=== PATIENT | female | born 1955 | race African-American/Black ===

== ENCOUNTER 2017-01-14 12:38 | Emergency (ER) | payer MEDICAID ==
[~2017-01-14] VITALS: Ht 154.9 cm; Wt 85.0 kg
[~2017-01-14 12:38] MED LIST: ALBUTEROL INH; CLIN-78 PO; DULO60CA44 PO; ESTR0.6264 PO; FLUTICASONE INH; FOLI-43 PO; HYDR-519 PO; IBUP-1510 PO; OMEP40CA34 PO
[2017-01-14] MEDS ORDERED: MORPHINE SULFATE 4 MG/ML CPJ (NOT FOR IM USE) IV STA (15:01)
[2017-01-14] MEDS ORDERED: ASPIRIN 81MG TABLET PO ONE (15:15)
[2017-01-14] MEDS ORDERED: LABETALOL HCL 20MG/4ML CARPUJECT IV ONE (15:15)
[2017-01-14] MEDS ORDERED: DIPHENHYDRAMINE 50MG/ML VIAL IV ONE (15:15)
[2017-01-14 15:31] LABS: HEMATOCRIT. 40.7 % (36.0-48.0); HEMOGLOBIN. 13.5 g/dL (12.0-16.0); MEAN CORPUSCULAR HEMOGLOBIN 27.8 pg (28.0-32.0); MEAN CORPUSCULAR HGB CONC 33.3 g/dL (31.0-37.0); MEAN CORPUSCULAR VOLUME 83.4 fL (81.0-99.0); MEAN PLATELET VOLUME 9.4 fl (7.4-10.4); PLATELET 278 x1000/uL (130-400); RED BLOOD CELL COUNT 4.88 mill/uL (4.2-5.4); WHITE BLOOD COUNT 5.6 x1000/uL (4.5-11.0)
[2017-01-14 15:35] LABS: INR 1.1; PARTIAL THROMBOPLASTIN TIME 26.8 sec (24.0-34.0)
[2017-01-14 15:36] LABS: ALBUMIN 3.3 g/dL (3.4-5.0); ANION GAP 11; CALCIUM 8.8 mg/dL (8.5-10.1); CARBON DIOXIDE 26 mEq/L (21-32); CHLORIDE 105 mEq/L (98-107); INDEX HEMOLYSI 1 (1-3); INDEX ICTERIC 1 (1-4); INDEX LIPEMIC 1 (1-3); LIPASE 123 IU/L (73-393); UREA NITROGEN BLOOD 11 mg/dL (7-21)
[2017-01-14 15:37] LABS: DIFFERENTIAL COMMENT 1
[2017-01-14 15:39] LABS: ALANINE AMINOTRANSFERASE 25 IU/L (13-61); ETHANOL BLOOD < 10 mg/dL
[2017-01-14 15:43] LABS: eGFR > 60 mL/min (>60)
[2017-01-14 15:44] LABS: TROPONIN I < 0.02 ng/mL (0.00-0.04)
[2017-01-14 16:50] LABS: ATYPICAL LYMPHOCYTES 2; NUCLEATED RED BLOOD CELLS 1 /100 WBC; PLATELET ESTIMATE NORMAL
[2017-01-14 16:51] LABS: ANISOCYTOSIS 1+; PLATELET SATELLITISM FEW
[2017-01-14] MEDS ORDERED: LABETALOL 5MG/ML SYR 20 MG/4 ML SYRINGE IV NR (17:30)
[2017-01-14] MEDS ORDERED: HYDROCODONE/ACETAMINOPHEN 10/325MG TABLET PO ONE (18:00)
[2017-01-14 18:24] VITALS: BP 158/97
== END 2017-01-14 19:28 | disposition home or self-care (01) ==
LOC: ER 13:10
DX: G89.29 Other chronic pain (principal); M54.30 Sciatica, unspecified side; M54.9 Dorsalgia, unspecified; M19.90 Unspecified osteoarthritis, unspecified site; R00.1 Bradycardia, unspecified; I10 Essential (primary) hypertension; M32.9 Systemic lupus erythematosus, unspecified; Z90.710 Acquired absence of both cervix and uterus; Z96.641 Presence of right artificial hip joint; Z87.891 Personal history of nicotine dependence; Z88.0 Allergy status to penicillin
CPT/HCPCS: 36415; 71010; 80053; 83605; 83690; 84484; 85025; 85610; 85730; 93005; 96374; 96375; 99285; G0482; J1200; J2270; J3490; J7030; Z7610

== ENCOUNTER 2017-01-25 16:27 | Emergency (ER) | payer MEDICAID ==
[~2017-01-25] VITALS: Ht 154.9 cm; Wt 87.0 kg
[2017-01-25] MEDS ORDERED: KETOROLAC 60MG/2ML VIAL IM ONE (17:15)
[2017-01-25] MEDS ORDERED: CYCLOBENZAPRINE 10MG TABLET PO ONE (17:15)
[2017-01-25 19:28] VITALS: BP 159/82
== END 2017-01-25 19:30 | disposition home or self-care (01) ==
LOC: ER 17:57
DX: G89.29 Other chronic pain (principal); M25.552 Pain in left hip; M25.551 Pain in right hip; M19.90 Unspecified osteoarthritis, unspecified site; M32.9 Systemic lupus erythematosus, unspecified; I10 Essential (primary) hypertension; Z88.0 Allergy status to penicillin; Z79.899 Other long term (current) drug therapy; Z90.710 Acquired absence of both cervix and uterus; Z82.49 Family history of ischemic heart disease and other diseases of the circulatory system
CPT/HCPCS: 73521; 96372; 99284; J1885

== ENCOUNTER 2017-03-25 09:16 | Inpatient (IN) | payer MEDICAID ==
[~2017-03-25] VITALS: Ht 154.9 cm; Wt 86.6 kg
[~2017-03-25 09:16] MED LIST changes: -CLIN-78 PO; +CLIN150C14 PO
[2017-03-25] MEDS ORDERED: KETOROLAC 30MG/ML VIAL IV STA (10:08)
[2017-03-25] MEDS ORDERED: OXYCODONE HCL/ACETAMINOPHEN 5/325MG TABLET PO ONE (10:15)
[2017-03-25] MEDS ORDERED: METOCLOPRAMIDE HCL 10MG/2ML VIAL IV ONE (10:15)
[2017-03-25] MEDS ORDERED: MAGNESIUM/ALUMINUM HYDROXIDE/SIMETHICONE 30ML UDC PO ONE (10:15)
[2017-03-25] MEDS ORDERED: VISCOUS LIDOCAINE 2% 15 ML UDC PO ONE (10:15)
[2017-03-25] MEDS ORDERED: DICYCLOMINE 10 MG/5 ML ORAL SYR PO ONE (10:15)
[2017-03-25 10:25] LABS: BASOPHILS % 0.4 % (0.0-2.0); EOSINOPHILS % 4.7 % (0.0-5.0); HEMATOCRIT. 40.1 % (36.0-48.0); HEMOGLOBIN. 13.4 g/dL (12.0-16.0); LYMPHOCYTES % 28.7 % (20.0-50.0); MEAN CORPUSCULAR HEMOGLOBIN 29.3 pg (28.0-32.0); MEAN CORPUSCULAR VOLUME 87.7 fL (81.0-99.0); MEAN PLATELET VOLUME 9.2 fl (7.4-10.4); MONOCYTES % 7.5 % (2.0-8.0); NEUTROPHILS % 58.7 % (40.0-76.0); PLATELET 268 x1000/uL (130-400); RED BLOOD CELL COUNT 4.57 mill/uL (4.2-5.4); RED CELL DISTRIBUTION WIDTH 14.4 % (11.6-14.6)
[2017-03-25 10:33] LABS: PROTHROMBIN TIME 10.9 sec
[2017-03-25 10:43] LABS: CARBON DIOXIDE 31 mEq/L (21-32); CHLORIDE 103 mEq/L (98-107); TROPONIN I < 0.02 ng/mL (0.00-0.04)
[2017-03-25 10:57] LABS: CLARITY URINE TURBID (CLEAR); COLOR URINE DARK YELLOW (YELLOW); GLUCOSE URINE NEGATIVE (NEGATIVE); KETONES URINE TRACE (NEGATIVE); LEUKOCYTE ESTERASE URINE NEGATIVE (NEGATIVE); NITRITE URINE NEGATIVE (NEGATIVE); OCCULT BLOOD URINE NEGATIVE (NEGATIVE); PROTEIN URINE NEGATIVE (NEGATIVE); SPECIFIC GRAVITY URINE 1.025 (1.005-1.030)
[2017-03-25] MEDS ORDERED: ASPIRIN 325MG EC TABLET PO ONE (11:15)
[2017-03-25] MEDS ORDERED: MORPHINE SULFATE 4 MG/ML CPJ (NOT FOR IM USE) IV ONE (11:30)
[2017-03-25 14:01] VITALS: BP 223/115
[2017-03-25] MEDS ORDERED: CLON0.3T PO (14:01)
[2017-03-25] MEDS ORDERED: SUCR1ORA PO (14:01)
[2017-03-25] MEDS ORDERED: HYDR-3933 PO (14:01)
[2017-03-25] MEDS ORDERED: GABA-531 PO (14:01)
[2017-03-25] MEDS ORDERED: PRED1TAB PO (14:01)
[2017-03-25] MEDS ORDERED: OMEP20CA10 PO (14:01)
[2017-03-25] MEDS ORDERED: NAPR-679 PO (14:01)
[2017-03-25] MEDS ORDERED: METH2.5T PO (14:01)
[2017-03-25] MEDS ORDERED: NEOM10DR11 EACH EAR (14:01)
[2017-03-25] MEDS ORDERED: FOLI-43 PO (14:01)
[2017-03-25] MEDS ORDERED: NITROSTAT (14:01)
[2017-03-25] MEDS ORDERED: FLUT16SP15 NS (14:01)
[2017-03-25] MEDS ORDERED: HYDR-4133 PO (14:01)
[2017-03-25] MEDS ORDERED: ARNUITY NS (14:01)
[2017-03-25 15:13] VITALS: BP 223/119
[2017-03-25 15:14] VITALS: BP 158/87
[2017-03-25] MEDS ORDERED: CLONIDINE 0.1MG TABLET PO PRN (15:30)
[2017-03-25 16:00] VITALS: BP 141/83
[2017-03-25] MEDS ORDERED: HYDRALAZINE HCL 50MG TABLET PO SCH (17:00)
[2017-03-25] MEDS: SUCRALFATE 1 G/10 ML UDC PO SCH ×2 (17:17→20:19)
[2017-03-25] MEDS: HYDROCODONE/ACETAMINOPHEN 10/325MG TABLET PO SCH ×3 (17:18→22:09)
[2017-03-25] MEDS: NAPROXEN 375MG TABLET PO SCH (17:18)
[2017-03-25] MEDS: FOLIC ACID 1MG TABLET PO SCH (17:18)
[2017-03-25] MEDS: CLONIDINE 0.3MG TABLET PO SCH (17:18)
[2017-03-25] MEDS: NEOMYCIN-POLYMYXIN-HYDROCORTISONE 1% OTIC SUSP 10ML EACH EAR SCH (17:19)
[2017-03-25] MEDS: FLUTICASONE PROPIONATE 50MCG/SPRAY BOTTLE BOTHNSTRLS SCH (17:19)
[2017-03-25 20:00] VITALS: BP 110/70
[2017-03-25 20:16] LABS: *AMPHETAMINES SCREEN URINE NEGATIVE (NEGATIVE); *BARBITURATES SCREEN URINE NEGATIVE (NEGATIVE); *BENZODIAZEPINES SCREEN URINE NEGATIVE (NEGATIVE); *COCAINE SCREEN URINE NEGATIVE (NEGATIVE); CANNABINOID URINE SCREEN NEGATIVE (NEGATIVE); METHADONE URINE SCREEN NEGATIVE (NEGATIVE); OPIATES URINE SCREEN NEGATIVE (NEGATIVE); PHENCYCLIDINE URINE SCREEN NEGATIVE (NEGATIVE)
[2017-03-25] MEDS: GABAPENTIN 300MG CAPSULE PO SCH (22:09)
[2017-03-25] MEDS: ENOXAPARIN 40MG/0.4ML SYR SUBCUT SCH (22:09)
[2017-03-25] MEDS: LOSARTAN POTASSIUM 50 MG TABLET PO SCH (22:10)
[2017-03-25] MEDS: AMLODIPINE 5MG TABLET PO SCH (22:10)
[2017-03-25] MEDS: HYDRALAZINE HCL 50MG TABLET PO SCH (22:11)
[2017-03-26] VITALS: BP 146/92
[2017-03-26] MEDS: POTASSIUM CHLORIDE 20MEQ TABLET SR PO SCH ×2 (00:31→04:00)
[2017-03-26 03:41] LABS: CARBON DIOXIDE 28 mEq/L (21-32); CHLORIDE 105 mEq/L (98-107); TROPONIN I 0.03 ng/mL (0.00-0.04)
[2017-03-26 04:00] VITALS: BP 121/71
[2017-03-26] MEDS ORDERED: POTASSIUM CHLORIDE 20MEQ TABLET SR PO NR ×2 (05:45)
[2017-03-26] MEDS: OMEPRAZOLE 20MG CAPSULE EXTENDED RELEASE PO SCH (05:47)
[2017-03-26] MEDS: HYDRALAZINE HCL 50MG TABLET PO SCH ×3 (05:57→22:00)
[2017-03-26] MEDS: NAPROXEN 375MG TABLET PO SCH ×3 (07:50→16:54)
[2017-03-26] MEDS ORDERED: ONDANSETRON HCL 4MG/2ML VIAL IV PRN (08:00)
[2017-03-26] MEDS ORDERED: BISACODYL 5MG TABLET PO PRN (08:00)
[2017-03-26 08:06] VITALS: BP 110/65
[2017-03-26] MEDS: SUCRALFATE 1 G/10 ML UDC PO SCH ×4 (08:15→20:17)
[2017-03-26] MEDS: NEOMYCIN-POLYMYXIN-HYDROCORTISONE 1% OTIC SUSP 10ML EACH EAR SCH (08:19)
[2017-03-26] MEDS: CLONIDINE 0.3MG TABLET PO SCH ×3 (08:20→22:00)
[2017-03-26] MEDS: LOSARTAN POTASSIUM 50 MG TABLET PO SCH ×2 (08:20→11:53)
[2017-03-26] MEDS: FLUTICASONE PROPIONATE 50MCG/SPRAY BOTTLE BOTHNSTRLS SCH ×3 (08:20→16:56)
[2017-03-26] MEDS: PREDNISONE 10MG TABLET PO SCH (08:21)
[2017-03-26] MEDS: AMLODIPINE 5MG TABLET PO SCH ×2 (08:21→20:36)
[2017-03-26] MEDS: HYDROCODONE/ACETAMINOPHEN 10/325MG TABLET PO SCH ×5 (08:21→22:52)
[2017-03-26] MEDS: FOLIC ACID 1MG TABLET PO SCH (08:21)
[2017-03-26] MEDS ORDERED: REGADENOSON 0.4 MG/5 ML IV NR (10:00)
[2017-03-26] MEDS ORDERED: REGADENOSON 0.4 MG/5 ML IV ONE (12:46)
[2017-03-26 16:13] VITALS: BP 128/75
[2017-03-26] MEDS ORDERED: TEMAZEPAM 15MG CAPSULE PO PRN (18:00)
[2017-03-26 20:00] VITALS: BP 109/64
[2017-03-26] MEDS: GABAPENTIN 300MG CAPSULE PO SCH (20:17)
[2017-03-26] MEDS: ENOXAPARIN 40MG/0.4ML SYR SUBCUT SCH (20:18)
[2017-03-27] VITALS: BP 111/69
[2017-03-27 04:00] VITALS: BP 125/79
[2017-03-27] MEDS: HYDRALAZINE HCL 50MG TABLET PO SCH ×2 (05:26→13:35)
[2017-03-27] MEDS: CLONIDINE 0.3MG TABLET PO SCH ×2 (05:26→13:35)
[2017-03-27] MEDS: OMEPRAZOLE 20MG CAPSULE EXTENDED RELEASE PO SCH (05:59)
[2017-03-27 08:00] VITALS: BP 112/63
[2017-03-27] MEDS: FOLIC ACID 1MG TABLET PO SCH (08:29)
[2017-03-27] MEDS: AMLODIPINE 5MG TABLET PO SCH (08:29)
[2017-03-27] MEDS: NAPROXEN 375MG TABLET PO SCH ×2 (08:29→17:05)
[2017-03-27] MEDS: SUCRALFATE 1 G/10 ML UDC PO SCH ×2 (08:29→13:35)
[2017-03-27] MEDS: NEOMYCIN-POLYMYXIN-HYDROCORTISONE 1% OTIC SUSP 10ML EACH EAR SCH (08:29)
[2017-03-27] MEDS: LOSARTAN POTASSIUM 50 MG TABLET PO SCH (08:30)
[2017-03-27] MEDS: PREDNISONE 10MG TABLET PO SCH (08:30)
[2017-03-27] MEDS: FLUTICASONE PROPIONATE 50MCG/SPRAY BOTTLE BOTHNSTRLS SCH ×2 (08:34→16:28)
[2017-03-27] MEDS: HYDROCODONE/ACETAMINOPHEN 10/325MG TABLET PO SCH ×3 (08:34→16:27)
[2017-03-27 12:00] VITALS: BP 112/49
[2017-03-27 16:00] VITALS: BP 122/66
[2017-03-27] MEDS ORDERED: SUCRALFATE 1 G/10 ML UDC PO SCH (17:20)
[2017-03-27 18:41] VITALS: BP 122/66
== END 2017-03-27 19:20 | disposition home or self-care (01) | DRG 203 ==
LOC: ER 09:43 → 6WST 11:24 → EDBEDREQ 11:31 → ENRESERV 12:30
PROVIDERS: ADMIT Internal Medicine Pulmonary Disease; ATTEND Internal Medicine Pulmonary Disease
DX: M94.0 Chondrocostal junction syndrome [Tietze] (principal); M32.9 Systemic lupus erythematosus, unspecified; I10 Essential (primary) hypertension; E66.9 Obesity, unspecified; J45.909 Unspecified asthma, uncomplicated; R10.9 Unspecified abdominal pain; G89.29 Other chronic pain; G43.909 Migraine, unspecified, not intractable, without status migrainosus; M06.9 Rheumatoid arthritis, unspecified; Z68.36 Body mass index [BMI] 36.0-36.9, adult; Z96.641 Presence of right artificial hip joint; Z88.6 Allergy status to analgesic agent; Z88.0 Allergy status to penicillin; Z79.899 Other long term (current) drug therapy; Z82.49 Family history of ischemic heart disease and other diseases of the circulatory system
CPT/HCPCS: 36415; 70450; 71010; 78452; 80048; 80053; 80305; 81001; 83690; 83880; 84484; 85025; 85610; 93005; 93017; 93306; 96374; 96375; 97162; 99285; A9500; J1650; J1885; J2765; J2785; J7512

== ENCOUNTER 2017-05-19 10:07 | Emergency (ER) | payer MEDICAID ==
[~2017-05-19] VITALS: Ht 154.9 cm; Wt 84.0 kg
[~2017-05-19 10:07] MED LIST changes: -ALBUTEROL INH; +ARNUITY NS; -CLIN150C14 PO; -DULO60CA44 PO; -ESTR0.6264 PO; +FLUT16SP15 NS; -FLUTICASONE INH; +GABA-531 PO; +HYDR-3933 PO; -HYDR-519 PO; -IBUP-1510 PO; +IOHEXOL-350 100 ML BOTTLE ONE; +METH2.5T PO; +NAPR-679 PO; +NEOM10DR11 EACH EAR; +NITROSTAT; +OMEP20CA10 PO; -OMEP40CA34 PO; +PRED1TAB PO; +SODIUM CHLORIDE 0.9% 10ML VIAL ONE; +SUCR1ORA PO
[2017-05-19] MEDS ORDERED: MORPHINE SULFATE 4 MG/ML CPJ (NOT FOR IM USE) IV STA (11:08)
[2017-05-19] MEDS ORDERED: ONDANSETRON HCL 4MG/2ML VIAL IV ONE (11:30)
[2017-05-19 11:50] LABS: BASOPHILS % 0.6 % (0.0-2.0); EOSINOPHILS % 0.7 % (0.0-5.0); HEMATOCRIT. 40.4 % (36.0-48.0); HEMOGLOBIN. 13.5 g/dL (12.0-16.0); LYMPHOCYTES % 16.5 % (20.0-50.0); MEAN CORPUSCULAR HEMOGLOBIN 30.2 pg (28.0-32.0); MEAN PLATELET VOLUME 8.9 fl (7.4-10.4); MONOCYTES % 2.4 % (2.0-8.0); NEUTROPHILS % 79.8 % (40.0-76.0); PLATELET 260 x1000/uL (130-400); RED BLOOD CELL COUNT 4.49 mill/uL (4.2-5.4)
[2017-05-19 11:57] LABS: PROTHROMBIN TIME 10.7 sec (9.4-11.6)
[2017-05-19 12:05] LABS: CARBON DIOXIDE 26 mEq/L (21-32); CHLORIDE 107 mEq/L (98-107); TROPONIN I < 0.02 ng/mL (0.00-0.04)
[2017-05-19] MEDS ORDERED: ASPIRIN 325MG EC TABLET PO ONE (13:00)
[2017-05-19] MEDS ORDERED: OXYCODONE HCL/ACETAMINOPHEN 5/325MG TABLET PO ONE (15:15)
[2017-05-19] MEDS ORDERED: KETOROLAC 30MG/ML VIAL IV ONE (15:15)
[2017-05-19 15:58] VITALS: BP 189/98
== END 2017-05-19 17:00 | disposition home or self-care (01) ==
LOC: ER 11:16
DX: M25.50 Pain in unspecified joint (principal); R06.00 Dyspnea, unspecified; I10 Essential (primary) hypertension; R07.9 Chest pain, unspecified; M19.90 Unspecified osteoarthritis, unspecified site; R53.1 Weakness; Z88.0 Allergy status to penicillin; Z88.8 Allergy status to other drugs, medicaments and biological substances
CPT/HCPCS: 36415; 71010; 71275; 80053; 83880; 84484; 85025; 85610; 93005; 93970; 96374; 96375; 99285; A4216; J1885; J2270; J2405; J7040; Q9967; Z7610

== ENCOUNTER 2017-06-18 05:30 | Inpatient (IN) | payer MEDICAID ==
[~2017-06-18] VITALS: Ht 154.9 cm; Wt 93.9 kg
[~2017-06-18 05:30] MED LIST changes: -IOHEXOL-350 100 ML BOTTLE ONE; -SODIUM CHLORIDE 0.9% 10ML VIAL ONE
[2017-06-18] MEDS ORDERED: SODIUM CHLORIDE 0.9% 1,000 ML IV ONE (06:19)
[2017-06-18] MEDS ORDERED: ONDANSETRON HCL 4MG/2ML VIAL IV STA (06:19)
[2017-06-18] MEDS ORDERED: KETOROLAC 15MG/ML VIAL IV ONE (06:30)
[2017-06-18 06:41] LABS: BASOPHILS % 2.1 % (0.0-2.0); HEMATOCRIT. 39.6 % (36.0-48.0); HEMOGLOBIN. 13.3 g/dL (12.0-16.0); LYMPHOCYTES % 38.1 % (20.0-50.0); MEAN CORPUSCULAR HEMOGLOBIN 30.2 pg (28.0-32.0); MEAN CORPUSCULAR VOLUME 89.8 fL (81.0-99.0); MEAN PLATELET VOLUME 9.4 fl (7.4-10.4); MONOCYTES % 8.8 % (2.0-8.0); PLATELET 241 x1000/uL (130-400); RED CELL DISTRIBUTION WIDTH 14.5 % (11.6-14.6)
[2017-06-18 06:48] LABS: INR 1.1; PROTHROMBIN TIME 11.2 sec (9.4-11.6)
[2017-06-18 06:59] LABS: CARBON DIOXIDE 27 mEq/L (21-32); CHLORIDE 106 mEq/L (98-107); TROPONIN I < 0.02 ng/mL (0.00-0.04)
[2017-06-18 08:34] LABS: GLUCOSE URINE NEGATIVE (NEGATIVE); KETONES URINE NEGATIVE (NEGATIVE); LEUKOCYTE ESTERASE URINE NEGATIVE (NEGATIVE); NITRITE URINE NEGATIVE (NEGATIVE); OCCULT BLOOD URINE NEGATIVE (NEGATIVE); PROTEIN URINE NEGATIVE (NEGATIVE); SPECIFIC GRAVITY URINE 1.016 (1.005-1.030); UROBILINOGEN URINE 0.2 E.U./dL (0.2-1.0)
[2017-06-18 08:35] LABS: CLARITY URINE CLEAR (CLEAR); COLOR URINE YELLOW (YELLOW)
[2017-06-18] MEDS ORDERED: IOHEXOL-300 100 ML BOTTLE ONE (08:52)
[2017-06-18] MEDS ORDERED: SODIUM CHLORIDE 0.9% 1,000 ML IV SCH (09:06)
[2017-06-18] MEDS ORDERED: CLONIDINE 0.1MG TABLET PO NR (12:26)
[2017-06-18] MEDS ORDERED: KETOROLAC 30MG/ML VIAL IV NR (12:26)
[2017-06-18] MEDS ORDERED: MORPHINE SULFATE 4 MG/ML CPJ (NOT FOR IM USE) IV NR (13:15)
[2017-06-18 13:30] VITALS: BP 182/69
[2017-06-18] MEDS ORDERED: CLONIDINE 0.3MG TABLET PO NR (14:00)
[2017-06-18] MEDS ORDERED: CLON0.3T PO (14:22)
[2017-06-18] MEDS ORDERED: HYDR-4133 PO (14:22)
[2017-06-18] MEDS ORDERED: DOCU-150 PO (14:22)
[2017-06-18] MEDS: AMLODIPINE 10MG TABLET PO SCH (15:28)
[2017-06-18 15:30] VITALS: BP 178/83
[2017-06-18 16:00] VITALS: BP 156/78
[2017-06-18] MEDS ORDERED: DICYCLOMINE HCL 20MG TABLET PO PRN (16:00)
[2017-06-18] MEDS: BISACODYL 5MG TABLET PO SCH (17:58)
[2017-06-18 18:00] VITALS: BP 133/64
[2017-06-18 20:00] VITALS: BP 134/74
[2017-06-18] MEDS ORDERED: HYDRALAZINE HCL 50MG TABLET PO SCH (21:00)
[2017-06-18] MEDS: HYDRALAZINE HCL 50MG TABLET PO SCH (22:00)
[2017-06-18] MEDS: CLONIDINE 0.3MG TABLET PO SCH (22:00)
[2017-06-18 23:09] VITALS: BP 129/77
[2017-06-19] MEDS ORDERED: MAGNESIUM HYDROXIDE 400MG/5ML 30ML UDC PO NR
[2017-06-19 03:57] VITALS: BP 139/80
[2017-06-19 06:00] VITALS: BP 141/77
[2017-06-19] MEDS: HYDRALAZINE HCL 50MG TABLET PO SCH ×3 (06:15→22:00)
[2017-06-19] MEDS: CLONIDINE 0.3MG TABLET PO SCH ×2 (06:16→13:42)
[2017-06-19 07:06] LABS: BASOPHILS % 0.9 % (0.0-2.0); EOSINOPHILS % 4.4 % (0.0-5.0); HEMATOCRIT. 46.4 % (36.0-48.0); HEMOGLOBIN. 15.7 g/dL (12.0-16.0); LYMPHOCYTES % 34.4 % (20.0-50.0); MEAN CORPUSCULAR HEMOGLOBIN 30.7 pg (28.0-32.0); MEAN CORPUSCULAR VOLUME 90.8 fL (81.0-99.0); MEAN PLATELET VOLUME 10.1 fl (7.4-10.4); MONOCYTES % 10.6 % (2.0-8.0); NEUTROPHILS % 49.7 % (40.0-76.0); PLATELET 237 x1000/uL (130-400); RED BLOOD CELL COUNT 5.11 mill/uL (4.2-5.4); RED CELL DISTRIBUTION WIDTH 14.6 % (11.6-14.6)
[2017-06-19 07:16] LABS: CARBON DIOXIDE 25 mEq/L (21-32); CHLORIDE 106 mEq/L (98-107)
[2017-06-19 08:00] VITALS: BP 117/66
[2017-06-19] MEDS: BISACODYL 5MG TABLET PO SCH (08:58)
[2017-06-19] MEDS: AMLODIPINE 10MG TABLET PO SCH (08:58)
[2017-06-19] MEDS: LACTULOSE 20G/30ML UDC PO SCH ×2 (11:21→16:08)
[2017-06-19 12:00] VITALS: BP 136/72
[2017-06-19 16:00] VITALS: BP 127/65
[2017-06-19] MEDS: HYDROCODONE/ACETAMINOPHEN 10/325MG TABLET PO PRN (16:09)
[2017-06-19] MEDS ORDERED: CLONIDINE 0.3MG TABLET PO SCH (17:00)
[2017-06-19 20:00] VITALS: BP 100/57
[2017-06-19] MEDS: CLONIDINE 0.2MG TABLET PO SCH (21:00)
[2017-06-20] VITALS (28 sets, daily range): BP systolic 96–189; BP diastolic 47–106
[2017-06-20] MEDS: MORPHINE SULFATE 4 MG/ML CPJ (NOT FOR IM USE) IV PRN ×3 (03:18→21:05)
[2017-06-20] MEDS: HYDRALAZINE HCL 50MG TABLET PO SCH ×3 (06:00→21:11)
[2017-06-20 07:49] LABS: BASOPHILS % 1.1 % (0.0-2.0); EOSINOPHILS % 3.3 % (0.0-5.0); HEMOGLOBIN. 14.7 g/dL (12.0-16.0); LYMPHOCYTES % 31.9 % (20.0-50.0); MEAN CORPUSCULAR HEMOGLOBIN 30.3 pg (28.0-32.0); MEAN PLATELET VOLUME 9.8 fl (7.4-10.4); MONOCYTES % 8.5 % (2.0-8.0); NEUTROPHILS % 55.2 % (40.0-76.0); PLATELET 262 x1000/uL (130-400); RED BLOOD CELL COUNT 4.83 mill/uL (4.2-5.4); RED CELL DISTRIBUTION WIDTH 14.5 % (11.6-14.6)
[2017-06-20 08:10] LABS: CARBON DIOXIDE 29 mEq/L (21-32); CHLORIDE 104 mEq/L (98-107)
[2017-06-20] MEDS: CLONIDINE 0.2MG TABLET PO SCH ×2 (08:35→21:11)
[2017-06-20] MEDS: BISACODYL 5MG TABLET PO SCH (08:36)
[2017-06-20] MEDS: LACTULOSE 20G/30ML UDC PO SCH ×2 (08:36→17:00)
[2017-06-20] MEDS: AMLODIPINE 10MG TABLET PO SCH (08:36)
[2017-06-20] MEDS ORDERED: ROCURONIUM BROMIDE 10MG/ML VIAL 5ML IV ONE (10:00)
[2017-06-20] MEDS ORDERED: SODIUM CHLORIDE 0.9% 10ML VIAL ONE (10:00)
[2017-06-20] MEDS ORDERED: PROPOFOL 200MG/20ML VIAL IV ONE (10:00)
[2017-06-20] MEDS ORDERED: CEFAZOLIN SODIUM 1000MG/VIAL ONE (10:00)
[2017-06-20] MEDS ORDERED: LIDOCAINE HCL 1%/EPI 1:200,000 30 ML VIAL ONE (10:03)
[2017-06-20] MEDS ORDERED: FENTANYL CITRATE/PF 50MCG/ML 2ML VIAL ONE (10:03)
[2017-06-20] MEDS ORDERED: BACITRACIN 50,000 UNITS/VIAL ONE (10:03)
[2017-06-20] MEDS ORDERED: MIDAZOLAM HCL 2 MG/2 ML VIAL ONE (10:03)
[2017-06-20] MEDS ORDERED: GELATIN SPONGE,ABSORBABLE SZ 100 ONE (10:03)
[2017-06-20] MEDS ORDERED: THROMBIN (BOVINE) 5000 UNITS/VIAL TOP ONE (10:12)
[2017-06-20] MEDS ORDERED: CLINDAMYCIN 900 MG in DEXTROSE 5% WATER 50 ML IV ONE (10:15)
[2017-06-20] MEDS ORDERED: LABETALOL 5MG/ML SYR 20 MG/4 ML SYRINGE IV ONE (10:52)
[2017-06-20] MEDS ORDERED: MORPHINE SULFATE 10 MG/ML CPJ ONE (11:58)
[2017-06-20] MEDS ORDERED: NICARDIPINE 50 MG in SODIUM CHLORIDE 0.9% 230 ML IV PRN (14:15)
[2017-06-20] MEDS ORDERED: DIPHENHYDRAMINE 50MG/ML VIAL IV PRN (15:07)
[2017-06-20] MEDS ORDERED: MORPHINE PCA 50MG/50ML IV PRN (15:30)
[2017-06-20] MEDS ORDERED: DIPHENHYDRAMINE INJ IV PRN (15:30)
[2017-06-20] MEDS: ENALAPRIL 2.5MG/2ML VIAL 2ML IV PRN (15:30)
[2017-06-20] MEDS ORDERED: NALOXONE INJ IV PRN (15:30)
[2017-06-20] MEDS ORDERED: NICARDIPINE 100 MG in SODIUM CHLORIDE 0.9% 60 ML IV PRN (15:30)
[2017-06-20] MEDS: DEXT 5%/LACTATED RINGERS 1,000 ML IV SCH ×2 (15:34→22:50)
[2017-06-20] MEDS: CLINDAMYCIN 600 MG in DEXTROSE 5% WATER 50 ML IV SCH (16:59)
[2017-06-20] MEDS: PANTOPRAZOLE SODIUM 40 MG/VIAL IV SCH (21:11)
[2017-06-21] VITALS (62 sets, daily range): BP systolic 96–172; BP diastolic 34–110
[2017-06-21] MEDS: CLINDAMYCIN 600 MG in DEXTROSE 5% WATER 50 ML IV SCH ×3 (00:18→15:08)
[2017-06-21] MEDS: HYDROCODONE/ACETAMINOPHEN 10/325MG TABLET PO PRN (00:19)
[2017-06-21] MEDS ORDERED: MORPHINE SULFATE 2 MG/ML CPJ (NOT FOR IM USE) IV PRN ×2 (00:30)
[2017-06-21] MEDS: ONDANSETRON INJ IV PRN ×4 (00:41→15:57)
[2017-06-21] MEDS ORDERED: MORPHINE SULFATE 4 MG/ML CPJ (NOT FOR IM USE) IV PRN (00:48)
[2017-06-21] MEDS: MORPHINE SULFATE 4 MG/ML CPJ (NOT FOR IM USE) IV PRN ×7 (02:21→20:02)
[2017-06-21] MEDS: DEXT 5%/LACTATED RINGERS 1,000 ML IV SCH ×3 (06:30→20:45)
[2017-06-21] MEDS: HYDRALAZINE HCL 50MG TABLET PO SCH ×3 (06:35→22:13)
[2017-06-21] MEDS: PANTOPRAZOLE SODIUM 40 MG/VIAL IV SCH (08:27)
[2017-06-21] MEDS: CLONIDINE 0.2MG TABLET PO SCH ×2 (08:27→21:00)
[2017-06-21] MEDS: BISACODYL 5MG TABLET PO SCH (08:27)
[2017-06-21] MEDS: LACTULOSE 20G/30ML UDC PO SCH ×3 (08:27→17:00)
[2017-06-21 10:17] LABS: HEMATOCRIT. 36.5 % (36.0-48.0); MEAN CORPUSCULAR VOLUME 90.6 fL (81.0-99.0); MEAN PLATELET VOLUME 9.1 fl (7.4-10.4); PLATELET 227 x1000/uL (130-400); RED BLOOD CELL COUNT 4.03 mill/uL (4.2-5.4); RED CELL DISTRIBUTION WIDTH 14.3 % (11.6-14.6)
[2017-06-21 10:24] LABS: HEMOGLOBIN. 12.1 g/dL (12.0-16.0)
[2017-06-21 10:34] LABS: CARBON DIOXIDE 26 mEq/L (21-32); CHLORIDE 102 mEq/L (98-107)
[2017-06-21 11:29] LABS: PLATELET ESTIMATE NORMAL
[2017-06-21] MEDS: ENALAPRIL 2.5MG/2ML VIAL 2ML IV PRN (13:04)
[2017-06-21] MEDS ORDERED: ENALAPRIL 1.25MG/ML VIAL 1ML IV PRN (21:45)
[2017-06-22] VITALS (48 sets, daily range): BP systolic 95–187; BP diastolic 37–108
[2017-06-22] MEDS: MORPHINE SULFATE 4 MG/ML CPJ (NOT FOR IM USE) IV PRN ×5 (02:00→23:09)
[2017-06-22] MEDS: ONDANSETRON INJ IV PRN ×2 (02:04→10:43)
[2017-06-22] MEDS: DEXT 5%/LACTATED RINGERS 1,000 ML IV SCH ×2 (03:33→06:15)
[2017-06-22 05:54] LABS: BASOPHILS % 0.1 % (0.0-2.0); EOSINOPHILS % 0.1 % (0.0-5.0); HEMATOCRIT. 33.7 % (36.0-48.0); HEMOGLOBIN. 11.1 g/dL (12.0-16.0); LYMPHOCYTES % 9.7 % (20.0-50.0); MEAN CORPUSCULAR HEMOGLOBIN 30.4 pg (28.0-32.0); MEAN CORPUSCULAR VOLUME 91.8 fL (81.0-99.0); MEAN PLATELET VOLUME 9.7 fl (7.4-10.4); MONOCYTES % 10.9 % (2.0-8.0); NEUTROPHILS % 79.2 % (40.0-76.0); PLATELET 198 x1000/uL (130-400); RED BLOOD CELL COUNT 3.67 mill/uL (4.2-5.4); RED CELL DISTRIBUTION WIDTH 14.7 % (11.6-14.6)
[2017-06-22 06:19] LABS: CHLORIDE 104 mEq/L (98-107)
[2017-06-22 06:26] LABS: CARBON DIOXIDE 28 mEq/L (21-32)
[2017-06-22] MEDS: HYDRALAZINE HCL 50MG TABLET PO SCH ×3 (06:37→23:02)
[2017-06-22] MEDS ORDERED: ALBUTEROL (0.083%) 2.5MG/3ML NEB HHN NR (08:45)
[2017-06-22] MEDS: LACTULOSE 20G/30ML UDC PO SCH ×2 (09:00→09:09)
[2017-06-22] MEDS: BISACODYL 5MG TABLET PO SCH (09:08)
[2017-06-22] MEDS: PANTOPRAZOLE SODIUM 40 MG/VIAL IV SCH (09:09)
[2017-06-22] MEDS: CLONIDINE 0.2MG TABLET PO SCH ×2 (09:09→20:27)
[2017-06-22] MEDS: ALBUTEROL (0.083%) 2.5MG/3ML NEB HHN PRN (09:59)
[2017-06-22] MEDS: CYCLOBENZAPRINE 10MG TABLET PO SCH ×2 (13:43→21:40)
[2017-06-22] MEDS ORDERED: DIPHENHYDRAMINE INJ IV PRN (20:45)
[2017-06-23] VITALS: BP 159/81
[2017-06-23] MEDS: MORPHINE SULFATE 4 MG/ML CPJ (NOT FOR IM USE) IV PRN ×2 (03:28→08:29)
[2017-06-23 04:00] VITALS: BP 147/79
[2017-06-23 06:23] LABS: BASOPHILS % 0.5 % (0.0-2.0); EOSINOPHILS % 3.2 % (0.0-5.0); HEMATOCRIT. 34.4 % (36.0-48.0); HEMOGLOBIN. 11.7 g/dL (12.0-16.0); LYMPHOCYTES % 17.2 % (20.0-50.0); MEAN CORPUSCULAR HEMOGLOBIN 30.8 pg (28.0-32.0); MEAN PLATELET VOLUME 9.5 fl (7.4-10.4); MONOCYTES % 14.1 % (2.0-8.0); PLATELET 179 x1000/uL (130-400); RED BLOOD CELL COUNT 3.79 mill/uL (4.2-5.4); RED CELL DISTRIBUTION WIDTH 14.1 % (11.6-14.6)
[2017-06-23] MEDS: CYCLOBENZAPRINE 10MG TABLET PO SCH ×3 (06:58→23:09)
[2017-06-23] MEDS: HYDRALAZINE HCL 50MG TABLET PO SCH ×3 (06:58→23:09)
[2017-06-23 08:00] VITALS: BP 165/82
[2017-06-23] MEDS: CLONIDINE 0.2MG TABLET PO SCH ×2 (08:29→21:16)
[2017-06-23] MEDS: PANTOPRAZOLE SODIUM 40 MG/VIAL IV SCH (08:29)
[2017-06-23] MEDS: ONDANSETRON INJ IV PRN ×3 (08:45→16:03)
[2017-06-23] MEDS ORDERED: MORPHINE SULFATE 2 MG/ML CPJ (NOT FOR IM USE) IV PRN ×2 (11:45)
[2017-06-23 12:00] VITALS: BP 134/61
[2017-06-23 16:00] VITALS: BP 147/90
[2017-06-23] MEDS: MORPHINE SULFATE 2 MG/ML CPJ (NOT FOR IM USE) IV PRN ×3 (16:04→23:15)
[2017-06-23] MEDS ORDERED: HYDROCODONE/ACETAMINOPHEN 10/325MG TABLET PO PRN (17:15)
[2017-06-23] MEDS: ALBUTEROL (0.083%) 2.5MG/3ML NEB HHN PRN (17:57)
[2017-06-23 20:00] VITALS: BP 133/70
[2017-06-24] VITALS: BP 143/80
[2017-06-24 04:00] VITALS: BP 139/90
[2017-06-24] MEDS: MORPHINE SULFATE 2 MG/ML CPJ (NOT FOR IM USE) IV PRN ×3 (05:03→18:42)
[2017-06-24] MEDS: CYCLOBENZAPRINE 10MG TABLET PO SCH ×3 (06:52→21:26)
[2017-06-24] MEDS: HYDRALAZINE HCL 50MG TABLET PO SCH ×3 (06:52→21:20)
[2017-06-24 07:45] LABS: BASOPHILS % 0.3 % (0.0-2.0); EOSINOPHILS % 3.5 % (0.0-5.0); HEMOGLOBIN. 12.3 g/dL (12.0-16.0); MEAN CORPUSCULAR VOLUME 90.8 fL (81.0-99.0); MEAN PLATELET VOLUME 9.5 fl (7.4-10.4); MONOCYTES % 11.8 % (2.0-8.0); NEUTROPHILS % 74.4 % (40.0-76.0); PLATELET 190 x1000/uL (130-400); RED BLOOD CELL COUNT 3.97 mill/uL (4.2-5.4); RED CELL DISTRIBUTION WIDTH 13.8 % (11.6-14.6)
[2017-06-24 08:00] VITALS: BP 131/64
[2017-06-24] MEDS: CLONIDINE 0.2MG TABLET PO SCH ×2 (08:58→21:19)
[2017-06-24] MEDS: FAMOTIDINE 20MG TABLET PO SCH ×2 (09:05→21:19)
[2017-06-24 12:00] VITALS: BP 147/84
[2017-06-24 16:00] VITALS: BP 133/97
[2017-06-24] MEDS: HYDROCODONE/ACETAMINOPHEN 10/325MG TABLET PO PRN (16:06)
[2017-06-24 20:00] VITALS: BP_SYST 161; BP_SYST 166; BP_DIAS 106; BP_DIAS 89
[2017-06-25] VITALS (7 sets, daily range): BP systolic 92–148; BP diastolic 48–97
[2017-06-25] MEDS: MORPHINE SULFATE 2 MG/ML CPJ (NOT FOR IM USE) IV PRN ×2 (00:10→08:06)
[2017-06-25] MEDS: HYDROCODONE/ACETAMINOPHEN 10/325MG TABLET PO PRN ×4 (04:17→18:28)
[2017-06-25] MEDS: HYDRALAZINE HCL 50MG TABLET PO SCH ×3 (06:03→22:00)
[2017-06-25] MEDS: CYCLOBENZAPRINE 10MG TABLET PO SCH ×3 (06:03→22:01)
[2017-06-25 06:58] LABS: BASOPHILS % 0.5 % (0.0-2.0); EOSINOPHILS % 6.1 % (0.0-5.0); HEMATOCRIT. 33.7 % (36.0-48.0); HEMOGLOBIN. 11.3 g/dL (12.0-16.0); LYMPHOCYTES % 10.4 % (20.0-50.0); MEAN CORPUSCULAR HEMOGLOBIN 30.4 pg (28.0-32.0); MEAN CORPUSCULAR VOLUME 90.4 fL (81.0-99.0); MEAN PLATELET VOLUME 9.8 fl (7.4-10.4); MONOCYTES % 14.3 % (2.0-8.0); NEUTROPHILS % 68.7 % (40.0-76.0); PLATELET 214 x1000/uL (130-400); RED BLOOD CELL COUNT 3.73 mill/uL (4.2-5.4); RED CELL DISTRIBUTION WIDTH 13.5 % (11.6-14.6)
[2017-06-25 06:59] LABS: CARBON DIOXIDE 32 mEq/L (21-32); CHLORIDE 98 mEq/L (98-107)
[2017-06-25] MEDS: CLONIDINE 0.2MG TABLET PO SCH ×2 (08:05→22:02)
[2017-06-25] MEDS: FAMOTIDINE 20MG TABLET PO SCH ×2 (08:05→22:02)
[2017-06-25] MEDS ORDERED: MAGNESIUM CITRATE 300ML SOLUTION PO SCH (12:00)
[2017-06-26] VITALS (7 sets, daily range): BP systolic 101–124; BP diastolic 50–94
[2017-06-26] MEDS: HYDROCODONE/ACETAMINOPHEN 10/325MG TABLET PO PRN ×4 (00:34→16:01)
[2017-06-26] MEDS: HYDRALAZINE HCL 50MG TABLET PO SCH ×2 (06:00→13:25)
[2017-06-26] MEDS: CYCLOBENZAPRINE 10MG TABLET PO SCH ×2 (06:21→13:24)
[2017-06-26] MEDS ORDERED: DOCUSATE SODIUM SUGAR FREE 100MG/10ML UDC NG SCH (09:15)
[2017-06-26] MEDS ORDERED: BISACODYL 10MG SUPP PR PRN (09:15)
[2017-06-26] MEDS: FAMOTIDINE 20MG TABLET PO SCH (09:27)
[2017-06-26] MEDS ORDERED: LACTULOSE 20G/30ML UDC PO SCH (14:00)
[2017-06-26] MEDS ORDERED: CLONIDINE 0.1MG TABLET PO SCH (21:00)
== END 2017-06-26 16:57 | DRG 304 ==
LOC: ER 05:46 → 5WST 09:08 → EDBEDREQ 09:10 → ENRESERV 11:58 → MICUNO 06-20 14:45 → 5WST 06-22 23:55
PROVIDERS: ADMIT Internal Medicine Critical Care Medicine; ATTEND Internal Medicine Critical Care Medicine
PROC: 0SG1071 Fusion of 2 or more Lumbar Vertebral Joints with Autologous Tissue Substitute, Posterior Approach, Posterior Column, Open Approach (ICD-10-PCS; 2017-06-20)
PROC: 02HV33Z Insertion of Infusion Device into Superior Vena Cava, Percutaneous Approach (ICD-10-PCS; principal; 2017-06-21)
PROC: B548ZZA Ultrasonography of Superior Vena Cava, Guidance (ICD-10-PCS; 2017-06-21)
DX: M43.16 Spondylolisthesis, lumbar region (principal); G82.20 Paraplegia, unspecified; K76.0 Fatty (change of) liver, not elsewhere classified; D62 Acute posthemorrhagic anemia; E87.6 Hypokalemia; J98.01 Acute bronchospasm; K57.90 Diverticulosis of intestine, part unspecified, without perforation or abscess without bleeding; M54.40 Lumbago with sciatica, unspecified side; T40.2X5A Adverse effect of other opioids, initial encounter; D72.829 Elevated white blood cell count, unspecified; G89.29 Other chronic pain; I10 Essential (primary) hypertension; K59.03 Drug induced constipation; M47.816 Spondylosis without myelopathy or radiculopathy, lumbar region; M48.061 Spinal stenosis, lumbar region without neurogenic claudication; Z79.891 Long term (current) use of opiate analgesic; Z82.49 Family history of ischemic heart disease and other diseases of the circulatory system; Z87.891 Personal history of nicotine dependence; Z90.710 Acquired absence of both cervix and uterus; Z96.641 Presence of right artificial hip joint; F10.10 Alcohol abuse, uncomplicated; F14.90 Cocaine use, unspecified, uncomplicated; M19.90 Unspecified osteoarthritis, unspecified site; Z88.0 Allergy status to penicillin; Z88.8 Allergy status to other drugs, medicaments and biological substances; Z91.09 Other allergy status, other than to drugs and biological substances; Z79.899 Other long term (current) drug therapy
CPT/HCPCS: 36415; 36569; 71010; 72100; 72148; 74000; 74177; 76937; 80048; 80053; 81003; 83605; 83690; 83880; 84484; 85025; 85610; 85651; 85730; 86140; 87086; 88304; 88311; 93005; 93970; 94640; 94664; 95863; 95925; 95926; 95928; 95929; 96361; 96374; 96375; 96376; 97116; 97163; 97167; 97530; 97535; 99285; A4216; C1713; C1725; C1893; C9113; J0690; J1200; J1885; J2250; J2270; J2405; J2704; J3010; J3490; J7030; J7050; J7060; J7121; J7611; Q9967

== ENCOUNTER 2017-06-27 21:28 | Emergency (ER) | payer MEDICAID ==
[~2017-06-27] VITALS: Ht 154.9 cm; Wt 84.0 kg
[~2017-06-27 21:28] MED LIST changes: +CLON0.3T PO; +DOCU-150 PO; +HYDR-4133 PO
[2017-06-27] MEDS ORDERED: TAMSULOSIN HCL 0.4MG SR CAPSULE PO ONE (22:45)
[2017-06-27] MEDS ORDERED: PHENAZOPYRIDINE HCL 100MG TABLET PO ONE (22:45)
[2017-06-27] MEDS ORDERED: TRAMADOL 50MG TABLET PO ONE (22:45)
[2017-06-27] MEDS ORDERED: LEVOFLOXACIN 250MG TABLET PO ONE (22:45)
[2017-06-27] MEDS ORDERED: DOCUSATE SODIUM 100MG CAPSULE PO ONE (22:45)
[2017-06-27 23:25] LABS: CLARITY URINE CLOUDY (CLEAR); COLOR URINE YELLOW (YELLOW); GLUCOSE URINE NEGATIVE (NEGATIVE); KETONES URINE NEGATIVE (NEGATIVE); LEUKOCYTE ESTERASE URINE 2+ (NEGATIVE); NITRITE URINE POSITIVE (NEGATIVE); OCCULT BLOOD URINE 1+ (NEGATIVE); PH URINE 6.5 (4.5-8.0); PROTEIN URINE 2+ (NEGATIVE)
[2017-06-28 00:11] VITALS: BP 159/96
== END 2017-06-28 01:55 | disposition home or self-care (01) ==
LOC: ER 22:24
DX: Z46.6 Encounter for fitting and adjustment of urinary device (principal); K59.00 Constipation, unspecified; N39.0 Urinary tract infection, site not specified; I10 Essential (primary) hypertension; Z88.0 Allergy status to penicillin
CPT/HCPCS: 51702; 81001; 87077; 87086; 87186; 99284; Z7610

== ENCOUNTER 2018-11-20 04:48 | Emergency (ER) | payer MEDICAID ==
[~2018-11-20] VITALS: Ht 154.9 cm; Wt 86.0 kg
[2018-11-20 11:42] LABS: BASOPHILS % 0.8 % (0.0-2.0); EOSINOPHILS % 5.6 % (0.0-5.0); HEMATOCRIT. 43.8 % (36.0-48.0); HEMOGLOBIN. 14.6 g/dL (12.0-16.0); LYMPHOCYTES % 35.5 % (20.0-50.0); MEAN CORPUSCULAR HEMOGLOBIN 30.2 pg (28.0-32.0); MEAN CORPUSCULAR VOLUME 90.8 fL (81.0-99.0); MEAN PLATELET VOLUME 9.7 fl (7.4-10.4); MONOCYTES % 11.3 % (2.0-8.0); NEUTROPHILS % 46.8 % (40.0-76.0); PLATELET 240 x1000/uL (130-400); RED BLOOD CELL COUNT 4.83 mill/uL (4.2-5.4); RED CELL DISTRIBUTION WIDTH 13.5 % (11.6-14.6)
[2018-11-20 11:55] LABS: CHLORIDE 104 mEq/L (98-107)
[2018-11-20 12:15] LABS: INR 1.1; PROTHROMBIN TIME 11.2 sec (9.1-11.1)
[2018-11-20] MEDS ORDERED: ONDANSETRON HCL 4MG/2ML INJ IV STA (12:21)
[2018-11-20] MEDS ORDERED: MORPHINE SULFATE 4 MG/ML CPJ (NOT FOR IM USE) IV STA (12:21)
[2018-11-20 12:44] LABS: CLARITY URINE CLEAR (CLEAR); COLOR URINE YELLOW (YELLOW); KETONES URINE NEGATIVE (NEGATIVE); LEUKOCYTE ESTERASE URINE NEGATIVE (NEGATIVE); NITRITE URINE NEGATIVE (NEGATIVE); OCCULT BLOOD URINE NEGATIVE (NEGATIVE); PH URINE 6.5 (4.5-8.0); PROTEIN URINE NEGATIVE (NEGATIVE); SPECIFIC GRAVITY URINE 1.018 (1.005-1.030)
[2018-11-20] MEDS ORDERED: IOHEXOL-300 100 ML BOTTLE ONE (14:09)
[2018-11-20 15:17] VITALS: BP 127/59
== END 2018-11-20 15:21 | disposition home or self-care (01) ==
LOC: ER 04:48
DX: R10.9 Unspecified abdominal pain (principal); M25.571 Pain in right ankle and joints of right foot; M32.9 Systemic lupus erythematosus, unspecified; I10 Essential (primary) hypertension; M19.90 Unspecified osteoarthritis, unspecified site; Z88.0 Allergy status to penicillin; Z88.5 Allergy status to narcotic agent; Z96.649 Presence of unspecified artificial hip joint
CPT/HCPCS: 36415; 71045; 74177; 80053; 81003; 83690; 84484; 85025; 85610; 93005; 93970; 96374; 96375; 99284; J2270; J2405; Q9967; Z7610

== ENCOUNTER 2020-02-29 09:34 | Emergency (ER) | payer MEDICAID ==
[~2020-02-29] VITALS: Ht 154.9 cm; Wt 82.0 kg
[~2020-02-29 09:34] MED LIST changes: -OMEP20CA10 PO; +OMEP20CA14 PO
[2020-02-29] MEDS ORDERED: ONDANSETRON HCL 4MG/2ML INJ IV STA (10:06)
[2020-02-29] MEDS ORDERED: KETOROLAC 30MG/ML VIAL IV STA (10:06)
[2020-02-29] MEDS ORDERED: SODIUM CHLORIDE 0.9% 1,000 ML IV ONE (10:06)
[2020-02-29 10:27] LABS: BASOPHILS % 1.1 % (0.0-2.0); EOSINOPHILS % 4.1 % (0.0-5.0); HEMATOCRIT. 48.2 % (36.0-48.0); HEMOGLOBIN. 16.6 g/dL (12.0-16.0); MEAN CORPUSCULAR HEMOGLOBIN 30.8 pg (28.0-32.0); MEAN CORPUSCULAR VOLUME 89.6 fL (81.0-99.0); MEAN PLATELET VOLUME 9.7 fl (7.4-10.4); MONOCYTES % 12.7 % (2.0-8.0); NEUTROPHILS % 45.1 % (40.0-76.0); PLATELET 257 x1000/uL (130-400); RED BLOOD CELL COUNT 5.38 mill/uL (4.2-5.4); RED CELL DISTRIBUTION WIDTH 13.7 % (11.6-14.6)
[2020-02-29 10:33] LABS: CHLORIDE 100 mEq/L (98-107)
[2020-02-29 10:45] LABS: CLARITY URINE CLOUDY (CLEAR); COLOR URINE YELLOW (YELLOW); KETONES URINE TRACE (NEGATIVE); LEUKOCYTE ESTERASE URINE NEGATIVE (NEGATIVE); NITRITE URINE NEGATIVE (NEGATIVE); OCCULT BLOOD URINE NEGATIVE (NEGATIVE); PROTEIN URINE 1+ (NEGATIVE); SPECIFIC GRAVITY URINE 1.025 (1.005-1.030)
[2020-02-29] MEDS ORDERED: ONDANSETRON HCL 4MG/2ML INJ IV ONE (10:45)
[2020-02-29] MEDS ORDERED: MORPHINE SULFATE 4 MG/ML CPJ (NOT FOR IM USE) IV ONE (10:45)
[2020-02-29] MEDS ORDERED: POTASSIUM CHLORIDE 20MEQ TABLET SR PO ONE (12:45)
[2020-02-29] MEDS ORDERED: HYDRALAZINE 20MG/ML VIAL IV ONE (14:00)
[2020-02-29] MEDS ORDERED: KCL 20MEQ/100ML PREMIX 100 ML IV ONE (15:30)
[2020-02-29 18:20] VITALS: BP 140/78
== END 2020-02-29 19:26 | disposition short-term general hospital (02) ==
LOC: ER 09:34 → CANBEDREQ 19:35
DX: R53.1 Weakness (principal); I10 Essential (primary) hypertension; Z96.649 Presence of unspecified artificial hip joint; Z79.899 Other long term (current) drug therapy; Z88.0 Allergy status to penicillin
CPT/HCPCS: 36415; 71045; 74176; 80053; 81003; 83880; 84484; 85025; 93005; 96374; 96375; 99285; J0360; J1885; J2405; J3480; J7030

== ENCOUNTER 2021-06-30 12:57 | Inpatient (IN) | payer MEDICAID, OTHER ==
[~2021-06-30] VITALS: Ht 154.9 cm; Wt 87.5 kg
[~2021-06-30 12:57] MED LIST changes: +ALBU18HF2 IH; +AMLO5TAB4 MT; -CLON0.3T PO; -DOCU-150 PO; -FOLI-43 PO; -GABA-531 PO; +HYDR200T35 PO; +HYDR25TA MT; +LIP40 MT; +LOSA100T3 PO; -METH2.5T PO; -NAPR-679 PO; -NEOM10DR11 EACH EAR; -NITROSTAT; +P20 MT; -PRED1TAB PO; +TIZA4TAB5 MT
[2021-06-30] MEDS ORDERED: LINZESS (13:11)
[2021-06-30] MEDS ORDERED: ASPI-1497 PO (13:11)
[2021-06-30] MEDS ORDERED: FOLI-43 PO (13:11)
[2021-06-30] MEDS ORDERED: MAGN296S70 PO (13:11)
[2021-06-30] MEDS ORDERED: CLON-457 PO (13:11)
[2021-06-30] MEDS ORDERED: METH2.5T PO (13:11)
[2021-06-30] MEDS ORDERED: DOCU-150 PO (13:11)
[2021-06-30] MEDS ORDERED: MORPHINE SULFATE 4 MG/ML CPJ (NOT FOR IM USE) IV STA (17:03)
[2021-06-30] MEDS ORDERED: METOCLOPRAMIDE HCL 10MG/2ML VIAL IV STA (17:03)
[2021-06-30] MEDS ORDERED: SODIUM CHLORIDE 0.9% 1,000 ML IV ONE (17:15)
[2021-06-30 17:33] LABS: BASOPHILS % 0.4 % (0.0-2.0); EOSINOPHILS % 1.4 % (0.0-5.0); HEMATOCRIT. 44.3 % (36.0-48.0); HEMOGLOBIN. 15.1 g/dL (12.0-16.0); LYMPHOCYTES % 15.8 % (20.0-50.0); MEAN CORPUSCULAR HEMOGLOBIN 30.8 pg (28.0-32.0); MEAN CORPUSCULAR VOLUME 90.6 fL (81.0-99.0); MEAN PLATELET VOLUME 9.2 fl (7.4-10.4); MONOCYTES % 10.1 % (2.0-8.0); NEUTROPHILS % 72.3 % (40.0-76.0); PLATELET 263 x1000/uL (130-400); RED BLOOD CELL COUNT 4.89 mill/uL (4.2-5.4); RED CELL DISTRIBUTION WIDTH 13.2 % (11.6-14.6)
[2021-06-30 17:36] LABS: CHLORIDE 105 mEq/L (98-107)
[2021-06-30] MEDS ORDERED: MORPHINE SULFATE 2 MG/ML CPJ (NOT FOR IM USE) IV NR (17:45)
[2021-06-30] MEDS ORDERED: DIATR MEGLU/DIATRIZOATE SOLN 30ML ONE (18:02)
[2021-06-30] MEDS ORDERED: DIPHENHYDRAMINE 50MG/ML VIAL IV ONE (18:45)
[2021-06-30] MEDS ORDERED: AMLODIPINE 5MG TABLET PO ONE (19:15)
[2021-06-30] MEDS ORDERED: HYDROCHLOROTHIAZIDE 25MG TABLET PO ONE (19:15)
[2021-06-30] MEDS ORDERED: CLONIDINE 0.1MG TABLET PO ONE (19:15)
[2021-06-30] MEDS ORDERED: CEFTRIAXONE 1 G PREMIX 50 ML IV ONE (22:15)
[2021-06-30] MEDS ORDERED: METRONIDAZOLE 500 MG PREMIX 100 ML IV ONE (22:15)
[2021-06-30 22:40] LABS: CLARITY URINE CLEAR (CLEAR); COLOR URINE YELLOW (YELLOW); KETONES URINE 1+ (NEGATIVE); LEUKOCYTE ESTERASE URINE NEGATIVE (NEGATIVE); NITRITE URINE NEGATIVE (NEGATIVE); OCCULT BLOOD URINE NEGATIVE (NEGATIVE); PH URINE 6.5 (4.5-8.0); PROTEIN URINE NEGATIVE (NEGATIVE)
[2021-06-30] MEDS ORDERED: IOHEXOL-300 100 ML BOTTLE ONE (23:27)
[2021-07-01] MEDS ORDERED: ENOXAPARIN 40MG/0.4ML SYR SUBCUT SCH
[2021-07-01] MEDS ORDERED: IPRATROPIUM/ALBUTEROL 0.5-3(2.5)MG/3ML NEB HHN PRN
[2021-07-01] MEDS ORDERED: PIPERACILLIN/TAZ 3.375G PREMIX 50 ML IV SCH
[2021-07-01] MEDS: ONDANSETRON HCL 4MG/2ML INJ IV PRN (01:13)
[2021-07-01] MEDS: MORPHINE SULFATE 2 MG/ML CPJ (NOT FOR IM USE) IV PRN ×2 (01:13→06:06)
[2021-07-01] MEDS: DOCUSATE SODIUM 100MG CAPSULE PO SCH ×2 (01:42→08:53)
[2021-07-01] MEDS: CLONIDINE 0.1MG TABLET PO PRN ×2 (03:17→17:42)
[2021-07-01] MEDS: ACETAMINOPHEN 325MG TABLET PO PRN (03:22)
[2021-07-01 05:41] LABS: BASOPHILS % 0.5 % (0.0-2.0); EOSINOPHILS % 1.5 % (0.0-5.0); HEMOGLOBIN. 13.6 g/dL (12.0-16.0); LYMPHOCYTES % 16.8 % (20.0-50.0); MEAN CORPUSCULAR HEMOGLOBIN 30.9 pg (28.0-32.0); MEAN CORPUSCULAR VOLUME 90.4 fL (81.0-99.0); MEAN PLATELET VOLUME 9.3 fl (7.4-10.4); MONOCYTES % 11.4 % (2.0-8.0); NEUTROPHILS % 69.8 % (40.0-76.0); PLATELET 265 x1000/uL (130-400); RED BLOOD CELL COUNT 4.42 mill/uL (4.2-5.4); RED CELL DISTRIBUTION WIDTH 12.9 % (11.6-14.6)
[2021-07-01 05:43] LABS: CHLORIDE 101 mEq/L (98-107)
[2021-07-01] MEDS: HYDRALAZINE HCL 10MG TABLET PO SCH ×3 (06:05→21:36)
[2021-07-01 06:20] VITALS: BP 139/80
[2021-07-01] MEDS: OMEPRAZOLE 20MG CAPSULE EXTENDED RELEASE PO SCH (06:26)
[2021-07-01] MEDS ORDERED: NALOXONE HCL 0.4MG/ML VIAL IV PRN (06:30)
[2021-07-01] MEDS: SUCRALFATE 1 G/10 ML UDC PO SCH ×4 (06:59→21:36)
[2021-07-01 08:00] VITALS: BP 159/87
[2021-07-01] MEDS: PIPERACILLIN/TAZOBACTAM 3.375 G in DEXTROSE 5% WATER 50 ML IV SCH ×3 (08:52→21:35)
[2021-07-01] MEDS: ASPIRIN 81MG EC TABLET PO SCH (08:54)
[2021-07-01] MEDS: LOSARTAN POTASSIUM 100 MG TABLET PO SCH (08:54)
[2021-07-01] MEDS: PREDNISONE 20MG TABLET PO SCH ×2 (08:55→17:42)
[2021-07-01] MEDS: ENOXAPARIN 30MG/0.3ML SYR SUBCUT SCH ×2 (08:56→21:36)
[2021-07-01] MEDS: FOLIC ACID 1MG TABLET PO SCH (08:57)
[2021-07-01] MEDS ORDERED: AMLODIPINE 5MG TABLET PO SCH (09:00)
[2021-07-01] MEDS ORDERED: POTASSIUM CHLORIDE 20MEQ TABLET SR PO NR (09:00)
[2021-07-01 12:00] VITALS: BP 171/77
[2021-07-01 16:00] VITALS: BP 121/100
[2021-07-01] MEDS: DOCUSATE SODIUM 250MG CAPSULE PO SCH (17:42)
[2021-07-01 20:00] VITALS: BP 150/100
[2021-07-01] MEDS: ATORVASTATIN CALCIUM 40MG TABLET PO SCH (21:36)
[2021-07-02] VITALS (7 sets, daily range): BP systolic 117–202; BP diastolic 68–124
[2021-07-02] MEDS: CLONIDINE 0.1MG TABLET PO PRN ×2 (01:01→08:17)
[2021-07-02] MEDS: PIPERACILLIN/TAZOBACTAM 3.375 G in DEXTROSE 5% WATER 50 ML IV SCH ×3 (05:20→22:07)
[2021-07-02] MEDS: HYDRALAZINE HCL 10MG TABLET PO SCH (05:20)
[2021-07-02] MEDS: SUCRALFATE 1 G/10 ML UDC PO SCH ×5 (06:33→21:00)
[2021-07-02] MEDS: OMEPRAZOLE 20MG CAPSULE EXTENDED RELEASE PO SCH (06:33)
[2021-07-02 07:03] LABS: BASOPHILS % 0.2 % (0.0-2.0); EOSINOPHILS % 0.1 % (0.0-5.0); HEMATOCRIT. 44.7 % (36.0-48.0); LYMPHOCYTES % 9.6 % (20.0-50.0); MEAN CORPUSCULAR HEMOGLOBIN 30.6 pg (28.0-32.0); MEAN PLATELET VOLUME 9.9 fl (7.4-10.4); MONOCYTES % 7.3 % (2.0-8.0); NEUTROPHILS % 82.8 % (40.0-76.0); PLATELET 326 x1000/uL (130-400); RED BLOOD CELL COUNT 4.91 mill/uL (4.2-5.4)
[2021-07-02 07:25] LABS: CHLORIDE 102 mEq/L (98-107)
[2021-07-02] MEDS ORDERED: POTASSIUM CHLORIDE 20MEQ TABLET SR PO SCH (08:00)
[2021-07-02] MEDS: LOSARTAN POTASSIUM 100 MG TABLET PO SCH (08:19)
[2021-07-02] MEDS: POLYETHYLENE GLYCOL 3350 (17GM) 1 DOSE PACK PO SCH (08:19)
[2021-07-02] MEDS: ASPIRIN 81MG EC TABLET PO SCH (08:19)
[2021-07-02] MEDS: PREDNISONE 20MG TABLET PO SCH ×3 (08:19→17:40)
[2021-07-02] MEDS: DOCUSATE SODIUM 250MG CAPSULE PO SCH ×2 (08:19→17:06)
[2021-07-02] MEDS: FOLIC ACID 1MG TABLET PO SCH (08:19)
[2021-07-02] MEDS: ENOXAPARIN 30MG/0.3ML SYR SUBCUT SCH (08:20)
[2021-07-02] MEDS: AMLODIPINE 5MG TABLET PO SCH ×2 (08:20→21:00)
[2021-07-02] MEDS: DOCUSATE SODIUM 100MG CAPSULE PO SCH (08:24)
[2021-07-02] MEDS: ONDANSETRON HCL 4MG/2ML INJ IV PRN ×4 (09:04→22:06)
[2021-07-02] MEDS ORDERED: HYDRALAZINE 20MG/ML VIAL IV PRN (10:00)
[2021-07-02] MEDS ORDERED: HYDRALAZINE 10 MG in SODIUM CHLORIDE 0.9% 49.5 ML IV PRN (10:00)
[2021-07-02] MEDS ORDERED: ENALAPRIL 1.25 MG in DEXTROSE 5% WATER 50 ML IV SCH (12:00)
[2021-07-02] MEDS ORDERED: ENALAPRIL 2.5MG/2ML VIAL 2ML IV SCH (12:00)
[2021-07-02] MEDS: MORPHINE SULFATE 2 MG/ML CPJ (NOT FOR IM USE) IV PRN ×2 (13:16→20:26)
[2021-07-02] MEDS: HYDRALAZINE HCL 100MG TABLET PO SCH ×2 (14:55→20:56)
[2021-07-02] MEDS ORDERED: METOCLOPRAMIDE HCL 10MG/2ML VIAL IV PRN (16:45)
[2021-07-02] MEDS: METOCLOPRAMIDE HCL 10MG/2ML VIAL IV SCH (17:05)
[2021-07-02] MEDS: ENALAPRIL 1.25MG/ML VIAL 1ML IV SCH (18:35)
[2021-07-02] MEDS: ATORVASTATIN CALCIUM 40MG TABLET PO SCH (21:00)
[2021-07-02] MEDS: HYDRALAZINE 20MG/ML VIAL IV PRN (22:27)
[2021-07-03] VITALS: BP 176/85
[2021-07-03] MEDS: ENALAPRIL 1.25MG/ML VIAL 1ML IV SCH ×5 (00:54→23:58)
[2021-07-03] MEDS: METOCLOPRAMIDE HCL 10MG/2ML VIAL IV SCH ×5 (00:55→23:59)
[2021-07-03] MEDS ORDERED: NITROGLYCERIN 0.4MG TABLET SL SL PRN (01:45)
[2021-07-03] MEDS: HYDRALAZINE HCL 100MG TABLET PO SCH (06:00)
[2021-07-03] MEDS ORDERED: SODIUM CHLORIDE 0.9% 500 ML IV ONE ×3 (07:00→09:00)
[2021-07-03] MEDS: SUCRALFATE 1 G/10 ML UDC PO SCH ×4 (07:10→22:29)
[2021-07-03] MEDS: PIPERACILLIN/TAZOBACTAM 3.375 G in DEXTROSE 5% WATER 50 ML IV SCH ×3 (07:21→22:31)
[2021-07-03 07:30] LABS: BASOPHILS % 0.2 % (0.0-2.0); HEMATOCRIT. 41.3 % (36.0-48.0); LYMPHOCYTES % 8.6 % (20.0-50.0); MEAN CORPUSCULAR VOLUME 91.7 fL (81.0-99.0); MEAN PLATELET VOLUME 9.9 fl (7.4-10.4); MONOCYTES % 12.2 % (2.0-8.0); PLATELET 304 x1000/uL (130-400); RED BLOOD CELL COUNT 4.51 mill/uL (4.2-5.4); RED CELL DISTRIBUTION WIDTH 13.3 % (11.6-14.6)
[2021-07-03 08:00] VITALS: BP 98/51
[2021-07-03] MEDS: DEXT 5%/0.45% NACL 1000ML 1,000 ML IV SCH (08:00)
[2021-07-03] MEDS ORDERED: ENOXAPARIN 40MG/0.4ML SYR SUBCUT SCH (09:00)
[2021-07-03] MEDS: AMLODIPINE 5MG TABLET PO SCH ×2 (09:00→22:31)
[2021-07-03] MEDS: FOLIC ACID 1MG TABLET PO SCH (10:20)
[2021-07-03] MEDS: DOCUSATE SODIUM 100MG CAPSULE PO SCH (10:20)
[2021-07-03] MEDS: PANTOPRAZOLE SODIUM 40 MG/VIAL IV SCH (10:20)
[2021-07-03] MEDS: DOCUSATE SODIUM 250MG CAPSULE PO SCH ×2 (10:20→17:56)
[2021-07-03] MEDS: ASPIRIN 81MG EC TABLET PO SCH (10:20)
[2021-07-03] MEDS: POLYETHYLENE GLYCOL 3350 (17GM) 1 DOSE PACK PO SCH (10:20)
[2021-07-03] MEDS: PREDNISONE 20MG TABLET PO SCH ×2 (10:21→18:00)
[2021-07-03 12:00] VITALS: BP 100/43
[2021-07-03 14:10] VITALS: BP 109/52
[2021-07-03 16:00] VITALS: BP 112/57
[2021-07-03 20:00] VITALS: BP 162/69
[2021-07-03] MEDS: ATORVASTATIN CALCIUM 40MG TABLET PO SCH (22:29)
[2021-07-03] MEDS: HYDRALAZINE HCL 50MG TABLET PO SCH (22:30)
[2021-07-04] VITALS: BP 165/72
[2021-07-04 04:00] VITALS: BP 176/89
[2021-07-04] MEDS: HYDRALAZINE 20MG/ML VIAL IV PRN (05:01)
[2021-07-04] MEDS: PIPERACILLIN/TAZOBACTAM 3.375 G in DEXTROSE 5% WATER 50 ML IV SCH ×3 (05:47→22:00)
[2021-07-04] MEDS: ENALAPRIL 1.25MG/ML VIAL 1ML IV SCH ×3 (05:48→18:00)
[2021-07-04] MEDS: METOCLOPRAMIDE HCL 10MG/2ML VIAL IV SCH ×3 (05:49→18:23)
[2021-07-04] MEDS: HYDRALAZINE HCL 50MG TABLET PO SCH ×3 (05:50→21:55)
[2021-07-04 06:16] LABS: CHLORIDE 106 mEq/L (98-107)
[2021-07-04 06:24] LABS: HDL CHOLESTEROL 33 mg/dL (40-59); LDL CHOLESTEROL 139 mg/dL (5-100)
[2021-07-04 06:25] LABS: CREATINE KINASE 102 IU/L (26-192)
[2021-07-04 06:26] LABS: CREATINE KINASE MB FRACTION 1.5 ng/mL (0.5-3.6)
[2021-07-04 06:29] LABS: BASOPHILS % 0.3 % (0.0-2.0); EOSINOPHILS % 0.1 % (0.0-5.0); HEMATOCRIT. 41.7 % (36.0-48.0); HEMOGLOBIN. 14.1 g/dL (12.0-16.0); MEAN CORPUSCULAR HEMOGLOBIN 30.7 pg (28.0-32.0); MEAN PLATELET VOLUME 10.1 fl (7.4-10.4); MONOCYTES % 7.3 % (2.0-8.0); NEUTROPHILS % 80.3 % (40.0-76.0); PLATELET 350 x1000/uL (130-400); RED BLOOD CELL COUNT 4.59 mill/uL (4.2-5.4); RED CELL DISTRIBUTION WIDTH 13.2 % (11.6-14.6)
[2021-07-04] MEDS: SUCRALFATE 1 G/10 ML UDC PO SCH ×4 (07:10→21:51)
[2021-07-04] MEDS ORDERED: MORPHINE SULFATE 2 MG/ML CPJ (NOT FOR IM USE) IV PRN (07:30)
[2021-07-04 08:00] VITALS: BP 200/100
[2021-07-04] MEDS: DEXT 5%/0.45% NACL 1000ML 1,000 ML IV SCH (08:00)
[2021-07-04] MEDS: ASPIRIN 81MG EC TABLET PO SCH (09:00)
[2021-07-04] MEDS: PANTOPRAZOLE SODIUM 40 MG/VIAL IV SCH (09:00)
[2021-07-04] MEDS ORDERED: CLONIDINE HCL 0.1MG/24HR PATCH TD SCH (09:00)
[2021-07-04] MEDS: AMLODIPINE 5MG TABLET PO SCH ×2 (09:00→21:56)
[2021-07-04] MEDS: FOLIC ACID 1MG TABLET PO SCH (09:00)
[2021-07-04] MEDS: POLYETHYLENE GLYCOL 3350 (17GM) 1 DOSE PACK PO SCH (09:00)
[2021-07-04] MEDS ORDERED: ENOXAPARIN 30MG/0.3ML SYR SUBCUT SCH (09:00)
[2021-07-04] MEDS: DOCUSATE SODIUM 250MG CAPSULE PO SCH ×2 (09:00→17:00)
[2021-07-04] MEDS ORDERED: POTASSIUM CHLORIDE 20MEQ TABLET SR PO NR (09:15)
[2021-07-04] MEDS: PREDNISONE 20MG TABLET PO SCH ×2 (11:04→18:23)
[2021-07-04 12:00] VITALS: BP 205/101
[2021-07-04] MEDS ORDERED: LIDOCAINE HCL 1% 30ML VIAL (10MG/ML) ONE (12:29)
[2021-07-04] MEDS ORDERED: AMLODIPINE 5MG TABLET PO SCH (13:45)
[2021-07-04] MEDS: FAMOTIDINE 20MG TABLET PO SCH ×2 (14:00→21:52)
[2021-07-04] MEDS: ONDANSETRON HCL 4MG/2ML INJ IV PRN (14:21)
[2021-07-04] MEDS ORDERED: HYDROCODONE/ACETAMINOPHEN 5/325MG TABLET PO PRN (15:00)
[2021-07-04] MEDS: CLONIDINE 0.1MG TABLET PO PRN (15:54)
[2021-07-04 16:00] VITALS: BP 214/91
[2021-07-04] MEDS ORDERED: NITROPRUSSIDE 100 MG in DEXT 5% WATER 246 ML IV PRN (16:00)
[2021-07-04] MEDS: ACETAMINOPHEN 325MG TABLET PO PRN (16:57)
[2021-07-04] MEDS ORDERED: KCL 20MEQ/100ML PREMIX 100 ML IV NR (17:00)
[2021-07-04] MEDS ORDERED: LABETALOL HCL 20MG/4ML CARPUJECT IV NR (17:08)
[2021-07-04] MEDS ORDERED: NICARDIPINE 50 MG in SODIUM CHLORIDE 0.9% 230 ML IV PRN (17:15)
[2021-07-04] MEDS ORDERED: PROCHLORPERAZINE 10MG/2ML VIAL IM NR (18:30)
[2021-07-04] MEDS ORDERED: LABETALOL HCL 20MG/4ML CARPUJECT IV PRN (18:30)
[2021-07-04 20:00] VITALS: BP 130/57
[2021-07-04 21:34] LABS: BASOPHILS % 0.2 % (0.0-2.0); HEMATOCRIT. 39.4 % (36.0-48.0); HEMOGLOBIN. 13.4 g/dL (12.0-16.0); MEAN CORPUSCULAR HEMOGLOBIN 30.7 pg (28.0-32.0); MEAN CORPUSCULAR VOLUME 90.6 fL (81.0-99.0); MEAN PLATELET VOLUME 9.6 fl (7.4-10.4); MONOCYTES % 11.2 % (2.0-8.0); NEUTROPHILS % 77.6 % (40.0-76.0); PLATELET 309 x1000/uL (130-400); RED BLOOD CELL COUNT 4.35 mill/uL (4.2-5.4); RED CELL DISTRIBUTION WIDTH 13.3 % (11.6-14.6)
[2021-07-04] MEDS: ATORVASTATIN CALCIUM 40MG TABLET PO SCH (21:51)
[2021-07-05] VITALS (7 sets, daily range): BP systolic 102–183; BP diastolic 57–97
[2021-07-05] MEDS: METOCLOPRAMIDE HCL 10MG/2ML VIAL IV SCH ×4 (00:51→17:47)
[2021-07-05] MEDS: ENALAPRIL 1.25MG/ML VIAL 1ML IV SCH ×4 (00:51→17:46)
[2021-07-05] MEDS ORDERED: LORAZEPAM 2MG/ML CPJ IV PRN (05:00)
[2021-07-05] MEDS: HYDRALAZINE HCL 50MG TABLET PO SCH ×2 (06:00→17:46)
[2021-07-05] MEDS: AMLODIPINE 5MG TABLET PO SCH ×3 (06:00→22:00)
[2021-07-05] MEDS: PIPERACILLIN/TAZOBACTAM 3.375 G in DEXTROSE 5% WATER 50 ML IV SCH ×3 (06:35→22:41)
[2021-07-05] MEDS: SUCRALFATE 1 G/10 ML UDC PO SCH ×4 (06:44→22:41)
[2021-07-05 07:07] LABS: BASOPHILS % 0.2 % (0.0-2.0); EOSINOPHILS % 0.1 % (0.0-5.0); HEMATOCRIT. 40.4 % (36.0-48.0); HEMOGLOBIN. 13.8 g/dL (12.0-16.0); LYMPHOCYTES % 11.5 % (20.0-50.0); MEAN CORPUSCULAR HEMOGLOBIN 30.9 pg (28.0-32.0); MEAN CORPUSCULAR VOLUME 90.6 fL (81.0-99.0); MEAN PLATELET VOLUME 9.7 fl (7.4-10.4); NEUTROPHILS % 74.2 % (40.0-76.0); PLATELET 276 x1000/uL (130-400); RED BLOOD CELL COUNT 4.46 mill/uL (4.2-5.4); RED CELL DISTRIBUTION WIDTH 13.1 % (11.6-14.6)
[2021-07-05 07:23] LABS: CHLORIDE 102 mEq/L (98-107)
[2021-07-05] MEDS: ENOXAPARIN 40MG/0.4ML SYR SUBCUT SCH (08:24)
[2021-07-05] MEDS: FAMOTIDINE 20MG TABLET PO SCH ×2 (08:30→22:41)
[2021-07-05] MEDS: FOLIC ACID 1MG TABLET PO SCH (08:30)
[2021-07-05] MEDS: PREDNISONE 20MG TABLET PO SCH ×2 (08:30→17:46)
[2021-07-05] MEDS: DOCUSATE SODIUM 250MG CAPSULE PO SCH ×2 (08:31→17:00)
[2021-07-05] MEDS: ASPIRIN 81MG EC TABLET PO SCH (08:31)
[2021-07-05] MEDS: POLYETHYLENE GLYCOL 3350 (17GM) 1 DOSE PACK PO SCH (08:32)
[2021-07-05] MEDS: DEXT 5%/0.45% NACL 1000ML 1,000 ML IV SCH (08:34)
[2021-07-05] MEDS ORDERED: POTASSIUM CHLORIDE 20MEQ/PACKET PO SCH (09:30)
[2021-07-05 12:22] LABS: AMYLASE 39 IU/L (25-115)
[2021-07-05] MEDS: CLONIDINE 0.2MG TABLET PO SCH (17:45)
[2021-07-05] MEDS: LABETALOL HCL 200MG TABLET PO SCH (21:00)
[2021-07-05] MEDS: ATORVASTATIN CALCIUM 40MG TABLET PO SCH (22:41)
[2021-07-06] VITALS: BP 139/65
[2021-07-06] MEDS: METOCLOPRAMIDE HCL 10MG/2ML VIAL IV SCH ×3 (00:33→13:23)
[2021-07-06] MEDS: AMLODIPINE 5MG TABLET PO SCH ×3 (00:34→13:25)
[2021-07-06] MEDS: ENALAPRIL 1.25MG/ML VIAL 1ML IV SCH ×3 (06:00→13:24)
[2021-07-06 07:07] LABS: CHLORIDE 104 mEq/L (98-107)
[2021-07-06] MEDS: SUCRALFATE 1 G/10 ML UDC PO SCH ×2 (07:10→13:23)
[2021-07-06 07:13] LABS: BASOPHILS % 0.1 % (0.0-2.0); EOSINOPHILS % 0.1 % (0.0-5.0); HEMATOCRIT. 39.7 % (36.0-48.0); HEMOGLOBIN. 13.3 g/dL (12.0-16.0); LYMPHOCYTES % 14.8 % (20.0-50.0); MEAN CORPUSCULAR HEMOGLOBIN 30.4 pg (28.0-32.0); MEAN CORPUSCULAR VOLUME 90.7 fL (81.0-99.0); MONOCYTES % 12.9 % (2.0-8.0); NEUTROPHILS % 72.1 % (40.0-76.0); RED BLOOD CELL COUNT 4.37 mill/uL (4.2-5.4)
[2021-07-06 08:00] VITALS: BP 169/81
[2021-07-06] MEDS: DEXT 5%/0.45% NACL 1000ML 1,000 ML IV SCH (08:00)
[2021-07-06] MEDS: ASPIRIN 81MG EC TABLET PO SCH (08:54)
[2021-07-06] MEDS: FAMOTIDINE 20MG TABLET PO SCH (08:54)
[2021-07-06] MEDS: DOCUSATE SODIUM 250MG CAPSULE PO SCH (08:54)
[2021-07-06] MEDS: PREDNISONE 20MG TABLET PO SCH (08:54)
[2021-07-06] MEDS: ENOXAPARIN 40MG/0.4ML SYR SUBCUT SCH (08:54)
[2021-07-06] MEDS: FOLIC ACID 1MG TABLET PO SCH (08:54)
[2021-07-06] MEDS: POLYETHYLENE GLYCOL 3350 (17GM) 1 DOSE PACK PO SCH (08:55)
[2021-07-06] MEDS: HYDRALAZINE HCL 50MG TABLET PO SCH (09:05)
[2021-07-06] MEDS: CLONIDINE 0.2MG TABLET PO SCH (09:06)
[2021-07-06] MEDS: LABETALOL HCL 200MG TABLET PO SCH (09:13)
[2021-07-06 09:46] LABS: PLATELET 214 x1000/uL (130-400)
[2021-07-06] MEDS ORDERED: IOHEXOL-350 100 ML BOTTLE ONE (11:30)
[2021-07-06 12:00] VITALS: BP 157/61
[2021-07-06] MEDS ORDERED: POTASSIUM CHLORIDE 20MEQ/PACKET PO SCH (13:00)
[2021-07-06] MEDS ORDERED: CLON-457 PO (14:25)
[2021-07-06] MEDS ORDERED: P20 MT (14:25)
[2021-07-06] MEDS ORDERED: LABE200T9 PO (14:25)
[2021-07-06] MEDS ORDERED: HYDR-4133 PO (14:25)
[2021-07-06] MEDS ORDERED: ONDA4TAB11 PO (14:25)
[2021-07-06] MEDS ORDERED: METO10TA3 MT (14:25)
[2021-07-06] MEDS ORDERED: CLON1PAT10 TD (14:25)
[2021-07-06] MEDS ORDERED: METR-167 MT (14:30)
[2021-07-06] MEDS ORDERED: LEVO500T89 MT (14:30)
[2021-07-06 16:00] VITALS: BP 130/64
[2021-07-06 16:03] VITALS: BP 154/83
== END 2021-07-06 17:00 | disposition home or self-care (01) | DRG 244 ==
LOC: ER 12:57 → 6EST 23:07 → ENRESERV 07-01 04:56 → UNDOADMIN 07-01 05:45 → 6EST 07-01 05:45 → 8WST 07-02 10:49
PROVIDERS: ADMIT Internal Medicine Pulmonary Disease; ATTEND Internal Medicine Pulmonary Disease
PROC: 02HV33Z Insertion of Infusion Device into Superior Vena Cava, Percutaneous Approach (ICD-10-PCS; principal; 2021-07-04)
PROC: B548ZZA Ultrasonography of Superior Vena Cava, Guidance (ICD-10-PCS; 2021-07-04)
DX: K57.32 Diverticulitis of large intestine without perforation or abscess without bleeding (principal); N17.9 Acute kidney failure, unspecified; K27.9 Peptic ulcer, site unspecified, unspecified as acute or chronic, without hemorrhage or perforation; K76.0 Fatty (change of) liver, not elsewhere classified; I16.0 Hypertensive urgency; E66.9 Obesity, unspecified; E78.00 Pure hypercholesterolemia, unspecified; E78.5 Hyperlipidemia, unspecified; E87.6 Hypokalemia; I10 Essential (primary) hypertension; K59.00 Constipation, unspecified; M19.90 Unspecified osteoarthritis, unspecified site; M06.9 Rheumatoid arthritis, unspecified; M54.9 Dorsalgia, unspecified; Z20.822 Contact with and (suspected) exposure to COVID-19; J45.909 Unspecified asthma, uncomplicated; R32 Unspecified urinary incontinence; Z79.82 Long term (current) use of aspirin; I25.2 Old myocardial infarction; Z87.11 Personal history of peptic ulcer disease; Z87.891 Personal history of nicotine dependence; Z88.5 Allergy status to narcotic agent; Z90.710 Acquired absence of both cervix and uterus; Z79.899 Other long term (current) drug therapy
CPT/HCPCS: 36415; 71045; 71275; 74018; 74177; 76770; 76937; 80048; 80053; 80061; 81003; 82150; 82550; 82553; 82962; 83735; 84145; 84484; 85025; 85379; 87015; 87045; 87426; 87427; 87449; 89055; 93005; 93306; 93970; 99291; C1725; C1893; C9113; J0360; J0696; J1200; J1650; J2270; J2405; J2543; J2765; J3480; J3490; J7030; J7040; J7050; J7060; J7512; Q9963; Q9967

== ENCOUNTER 2022-01-28 07:21 | Emergency (ER) | payer MEDICAID, OTHER ==
[~2022-01-28] VITALS: Ht 167.6 cm; Wt 84.0 kg
[~2022-01-28 07:21] MED LIST changes: +AMLO10TA4 MT; -AMLO5TAB4 MT; +ASPI-1497 PO; +CLON1PAT10 TD; +DOCU-150 PO; +FOLI-43 PO; -HYDR25TA MT; +LINZESS; +MAGN296S70 PO; +METH2.5T PO; +METR-167 MT; +ONDA4TAB11 PO
[2022-01-28] MEDS ORDERED: MORPHINE SULFATE 4 MG/ML CPJ (NOT FOR IM USE) IV STA (07:35)
[2022-01-28] MEDS ORDERED: ONDANSETRON HCL 4MG/2ML INJ IV STA (07:35)
[2022-01-28 08:26] LABS: BASOPHILS % 0.6 % (0.0-2.0); EOSINOPHILS % 1.6 % (0.0-5.0); HEMATOCRIT. 47.8 % (36.0-48.0); HEMOGLOBIN. 16.3 g/dL (12.0-16.0); LYMPHOCYTES % 23.5 % (20.0-50.0); MEAN CORPUSCULAR HEMOGLOBIN 30.4 pg (28.0-32.0); MEAN CORPUSCULAR VOLUME 89.1 fL (81.0-99.0); MEAN PLATELET VOLUME 10.1 fl (7.4-10.4); MONOCYTES % 13.6 % (2.0-8.0); NEUTROPHILS % 60.7 % (40.0-76.0); PLATELET 273 x1000/uL (130-400); RED BLOOD CELL COUNT 5.36 mill/uL (4.2-5.4); RED CELL DISTRIBUTION WIDTH 13.6 % (11.6-14.6)
[2022-01-28 08:28] LABS: CHLORIDE 103 mEq/L (98-107)
[2022-01-28] MEDS ORDERED: KETOROLAC 30MG/ML VIAL IV ONE (09:30)
[2022-01-28] MEDS ORDERED: HYDROCODONE/ACETAMINOPHEN 5/325MG TABLET PO ONE (09:30)
[2022-01-28 10:55] LABS: CHLORIDE 103 mEq/L (98-107)
[2022-01-28 11:00] VITALS: BP 170/98
[2022-01-28] MEDS ORDERED: DEXAMETHASONE 10 MG/ML VIAL IM ONE (12:00)
== END 2022-01-28 13:18 | disposition home or self-care (01) ==
LOC: ER 07:36 → EDBEDREQ 07:43 → ER 13:18 → CANBEDREQ 20:54
DX: M25.512 Pain in left shoulder (principal); I25.2 Old myocardial infarction; M32.9 Systemic lupus erythematosus, unspecified; J45.909 Unspecified asthma, uncomplicated; E78.00 Pure hypercholesterolemia, unspecified; I10 Essential (primary) hypertension; M19.90 Unspecified osteoarthritis, unspecified site; Z88.0 Allergy status to penicillin; Z88.6 Allergy status to analgesic agent; Z96.649 Presence of unspecified artificial hip joint; Z98.890 Other specified postprocedural states
CPT/HCPCS: 36415; 71045; 73030; 80048; 80053; 83880; 84484; 85025; 85379; 93005; 93971; 96372; 99285; J1100; J2405; A4565

== ENCOUNTER 2022-10-18 07:14 | Inpatient (IN) | payer MEDICARE, MEDICAID ==
[~2022-10-18] VITALS: Ht 154.9 cm; Wt 86.2 kg
[~2022-10-18 07:14] MED LIST changes: -FOLI-43 PO; -MAGN296S70 PO; -METR-167 MT; -ONDA4TAB11 PO; +TIZA-204 MT; -TIZA4TAB5 MT
[2022-10-18] MEDS ORDERED: MORPHINE SULFATE 4 MG/ML CPJ (NOT FOR IM USE) IV STA (08:00)
[2022-10-18] MEDS ORDERED: KETOROLAC 30MG/ML VIAL IV STA (08:00)
[2022-10-18 08:38] LABS: CHLORIDE 105 mEq/L (98-107)
[2022-10-18 08:50] LABS: BASOPHILS % 0.6 % (0.0-2.0); EOSINOPHILS % 2.7 % (0.0-5.0); HEMATOCRIT. 43.9 % (36.0-48.0); HEMOGLOBIN. 14.6 g/dL (12.0-16.0); LYMPHOCYTES % 19.1 % (20.0-50.0); MEAN CORPUSCULAR HEMOGLOBIN 30.5 pg (28.0-32.0); MEAN CORPUSCULAR VOLUME 91.5 fL (81.0-99.0); MEAN PLATELET VOLUME 9.2 fl (7.4-10.4); MONOCYTES % 8.8 % (2.0-8.0); NEUTROPHILS % 68.8 % (40.0-76.0); PLATELET 267 x1000/uL (130-400); RED BLOOD CELL COUNT 4.79 mill/uL (4.2-5.4); RED CELL DISTRIBUTION WIDTH 14.5 % (11.6-14.6)
[2022-10-18] MEDS ORDERED: MORPHINE SULFATE 4 MG/ML CPJ (NOT FOR IM USE) IV ONE (11:45)
[2022-10-18 13:00] VITALS: BP 100/61
[2022-10-18] MEDS: AMLODIPINE 10MG TABLET PO SCH (13:00)
[2022-10-18] MEDS ORDERED: HYDRALAZINE HCL 100MG TABLET PO NR (13:00)
[2022-10-18] MEDS ORDERED: ENOXAPARIN 40MG/0.4ML SYR SUBCUT SCH (13:00)
[2022-10-18] MEDS ORDERED: LORAZEPAM 1MG TABLET PO PRN (13:45)
[2022-10-18] MEDS ORDERED: POTASSIUM CHLORIDE 20MEQ TABLET SR PO NR (13:45)
[2022-10-18] MEDS ORDERED: NALOXONE HCL 0.4MG/ML VIAL IV PRN (14:00)
[2022-10-18] MEDS ORDERED: LORAZEPAM 2MG/ML CPJ IV NR (14:00)
[2022-10-18 16:00] VITALS: BP 129/60
[2022-10-18] MEDS: HYDROCODONE/ACETAMINOPHEN 7.5/325MG TABLET PO PRN (17:39)
[2022-10-18] MEDS ORDERED: GABA-529 MT (17:54)
[2022-10-18 18:00] VITALS: BP 125/75
[2022-10-18] MEDS: LOSARTAN POTASSIUM 50 MG TABLET PO SCH (18:00)
[2022-10-18 18:39] VITALS: BP 106/52
[2022-10-18] MEDS: ONDANSETRON HCL 4MG/2ML INJ IV PRN (18:44)
[2022-10-18 20:00] VITALS: BP 140/65
[2022-10-18] MEDS: ACETAMINOPHEN 325MG TABLET PO PRN (20:55)
[2022-10-18] MEDS ORDERED: ZOLPIDEM TARTRATE 5MG TABLET PO PRN (21:00)
[2022-10-18] MEDS: ATORVASTATIN CALCIUM 40MG TABLET PO SCH (21:29)
[2022-10-18] MEDS: HYDRALAZINE HCL 100MG TABLET PO SCH (21:29)
[2022-10-18] MEDS: GABAPENTIN 300MG CAPSULE PO SCH (21:30)
[2022-10-18] MEDS ORDERED: HYDR-4135 PO (21:31)
[2022-10-18] MEDS ORDERED: CLON0.1T PO (21:31)
[2022-10-18] MEDS ORDERED: POLY17PO3 MT (21:37)
[2022-10-18] MEDS ORDERED: FLUT200B INH (21:37)
[2022-10-18] MEDS ORDERED: MULT-1146 MT (21:37)
[2022-10-18] MEDS ORDERED: AMLO5TAB4 MT (21:37)
[2022-10-18] MEDS ORDERED: SUCR1TAB MT (21:37)
[2022-10-18] MEDS ORDERED: *PATIENT'S OWN MEDICATION STORAGE XX SCH (22:00)
[2022-10-19] VITALS: BP 143/71
[2022-10-19] MEDS: HYDRALAZINE HCL 100MG TABLET PO SCH ×3 (04:15→21:07)
[2022-10-19] MEDS: HYDROCODONE/ACETAMINOPHEN 7.5/325MG TABLET PO PRN ×2 (04:15→10:53)
[2022-10-19 04:22] VITALS: BP 168/79
[2022-10-19] MEDS: GABAPENTIN 300MG CAPSULE PO SCH ×2 (05:23→13:58)
[2022-10-19] MEDS: LOSARTAN POTASSIUM 50 MG TABLET PO SCH ×2 (05:23→17:30)
[2022-10-19 07:31] LABS: CHLORIDE 104 mEq/L (98-107)
[2022-10-19 07:48] LABS: BASOPHILS % 0.8 % (0.0-2.0); EOSINOPHILS % 6.1 % (0.0-5.0); HEMATOCRIT. 41.3 % (36.0-48.0); LYMPHOCYTES % 21.7 % (20.0-50.0); MEAN CORPUSCULAR HEMOGLOBIN 31.1 pg (28.0-32.0); MEAN CORPUSCULAR VOLUME 91.9 fL (81.0-99.0); MEAN PLATELET VOLUME 9.5 fl (7.4-10.4); MONOCYTES % 5.4 % (2.0-8.0); PLATELET 248 x1000/uL (130-400); RED CELL DISTRIBUTION WIDTH 15.1 % (11.6-14.6)
[2022-10-19 08:00] VITALS: BP 113/59
[2022-10-19] MEDS ORDERED: ASPIRIN 81MG TABLET PO SCH (09:00)
[2022-10-19] MEDS: AMLODIPINE 10MG TABLET PO SCH (09:00)
[2022-10-19 12:00] VITALS: BP 149/80
[2022-10-19 16:00] VITALS: BP 137/79
[2022-10-19 17:15] LABS: PROTHROMBIN TIME 10.6 sec (9.6-11.0)
[2022-10-19] MEDS: ACETAMINOPHEN 325MG TABLET PO PRN (18:05)
[2022-10-19 20:35] VITALS: BP 156/83
[2022-10-19] MEDS: ATORVASTATIN CALCIUM 40MG TABLET PO SCH (21:07)
[2022-10-19] MEDS: GABAPENTIN 100MG CAPSULE PO SCH (22:37)
[2022-10-20] VITALS (7 sets, daily range): BP systolic 124–179; BP diastolic 60–99
[2022-10-20] MEDS: ONDANSETRON HCL 4MG/2ML INJ IV PRN (02:45)
[2022-10-20] MEDS: HYDRALAZINE HCL 100MG TABLET PO SCH ×3 (03:07→21:31)
[2022-10-20] MEDS: CLONIDINE 0.1MG TABLET PO NR (03:27)
[2022-10-20 04:39] LABS: CLARITY URINE CLEAR (CLEAR); COLOR URINE YELLOW (YELLOW); KETONES URINE NEGATIVE (NEGATIVE); LEUKOCYTE ESTERASE URINE NEGATIVE (NEGATIVE); NITRITE URINE NEGATIVE (NEGATIVE); OCCULT BLOOD URINE NEGATIVE (NEGATIVE); PH URINE 6.5 (4.5-8.0); PROTEIN URINE NEGATIVE (NEGATIVE); SPECIFIC GRAVITY URINE 1.009 (1.005-1.030); UROBILINOGEN URINE 0.2 E.U./dL (0.2-1.0)
[2022-10-20] MEDS: LOSARTAN POTASSIUM 50 MG TABLET PO SCH ×2 (05:10→19:03)
[2022-10-20] MEDS: GABAPENTIN 100MG CAPSULE PO SCH ×3 (05:10→21:26)
[2022-10-20 06:16] LABS: BASOPHILS % 0.6 % (0.0-2.0); EOSINOPHILS % 2.1 % (0.0-5.0); HEMATOCRIT. 43.9 % (36.0-48.0); HEMOGLOBIN. 14.8 g/dL (12.0-16.0); LYMPHOCYTES % 19.1 % (20.0-50.0); MEAN CORPUSCULAR HEMOGLOBIN 30.6 pg (28.0-32.0); MEAN CORPUSCULAR VOLUME 91.1 fL (81.0-99.0); MEAN PLATELET VOLUME 9.1 fl (7.4-10.4); MONOCYTES % 8.3 % (2.0-8.0); NEUTROPHILS % 69.9 % (40.0-76.0); PLATELET 268 x1000/uL (130-400); RED BLOOD CELL COUNT 4.82 mill/uL (4.2-5.4)
[2022-10-20 06:43] LABS: CHLORIDE 107 mEq/L (98-107)
[2022-10-20] MEDS: AMLODIPINE 10MG TABLET PO SCH (08:53)
[2022-10-20] MEDS: HYDROCODONE/ACETAMINOPHEN 7.5/325MG TABLET PO PRN ×2 (10:44→20:04)
[2022-10-20] MEDS: ACETAMINOPHEN 325MG TABLET PO PRN (14:08)
[2022-10-20] MEDS: CLONIDINE 0.1MG TABLET PO PRN (21:25)
[2022-10-20] MEDS: ATORVASTATIN CALCIUM 40MG TABLET PO SCH (21:26)
[2022-10-21] VITALS (43 sets, daily range): BP systolic 91–186; BP diastolic 49–92
[2022-10-21] MEDS: CLONIDINE 0.1MG TABLET PO NR (03:30)
[2022-10-21] MEDS: HYDRALAZINE HCL 100MG TABLET PO SCH ×3 (06:00→20:59)
[2022-10-21] MEDS: LOSARTAN POTASSIUM 50 MG TABLET PO SCH ×2 (06:08→18:57)
[2022-10-21] MEDS: GABAPENTIN 100MG CAPSULE PO SCH ×3 (06:08→20:59)
[2022-10-21] MEDS: HYDROCODONE/ACETAMINOPHEN 7.5/325MG TABLET PO PRN (06:09)
[2022-10-21] MEDS ORDERED: LIDOCAINE HCL 1%/EPI 1:200,000 30 ML VIAL ONE (06:35)
[2022-10-21] MEDS ORDERED: THROMBIN (BOVINE) 5000 UNITS/VIAL TOP ONE (06:36)
[2022-10-21] MEDS ORDERED: BACITRACIN 15GM TUBE TOP ONE (06:36)
[2022-10-21] MEDS ORDERED: GENTAMICIN SULF 40MG/ML 2ML VIAL ONE (06:36)
[2022-10-21 07:42] LABS: BASOPHILS % 0.7 % (0.0-2.0); EOSINOPHILS % 2.7 % (0.0-5.0); HEMATOCRIT. 43.5 % (36.0-48.0); HEMOGLOBIN. 14.6 g/dL (12.0-16.0); MEAN CORPUSCULAR HEMOGLOBIN 30.7 pg (28.0-32.0); MEAN CORPUSCULAR VOLUME 91.4 fL (81.0-99.0); MEAN PLATELET VOLUME 9.2 fl (7.4-10.4); MONOCYTES % 10.3 % (2.0-8.0); NEUTROPHILS % 64.3 % (40.0-76.0); PLATELET 261 x1000/uL (130-400); RED BLOOD CELL COUNT 4.76 mill/uL (4.2-5.4); RED CELL DISTRIBUTION WIDTH 15.1 % (11.6-14.6)
[2022-10-21 07:43] LABS: CHLORIDE 104 mEq/L (98-107)
[2022-10-21] MEDS: AMLODIPINE 10MG TABLET PO SCH (08:45)
[2022-10-21] MEDS ORDERED: PROPOFOL 200MG/20ML VIAL IV ONE (09:38)
[2022-10-21] MEDS ORDERED: FENTANYL CITRATE/PF 50MCG/ML 2ML VIAL ONE ×3 (09:38→11:12)
[2022-10-21] MEDS ORDERED: MIDAZOLAM HCL 2 MG/2 ML VIAL ONE (09:39)
[2022-10-21] MEDS ORDERED: CLINDAMYCIN 900 MG PREMIX 50 ML IV ONE (09:43)
[2022-10-21] MEDS ORDERED: DEXAMETHASONE 4MG/ML 1ML VIAL ONE (10:18)
[2022-10-21] MEDS ORDERED: ONDANSETRON HCL 4MG/2ML INJ ONE (10:18)
[2022-10-21] MEDS ORDERED: SUCCINYLCHOLINE CHLORIDE 200MG/10ML IV ONE (10:19)
[2022-10-21] MEDS ORDERED: ROCURONIUM BROMIDE 10MG/ML VIAL 5ML IV ONE (10:19)
[2022-10-21] MEDS ORDERED: GLYCOPYRROLATE 0.2 MG/ML 2ML VIAL ONE (10:20)
[2022-10-21] MEDS ORDERED: FENTANYL CITRATE/PF 50MCG/ML 2ML VIAL IV PRN (12:00)
[2022-10-21] MEDS ORDERED: ALBUMIN HUMAN 25GM/100ML (25%) IV ONE (12:15)
[2022-10-21] MEDS: NICARDIPINE 100 MG in SODIUM CHLORIDE 0.9% 60 ML IV PRN (13:33)
[2022-10-21] MEDS: DEXT 5%/LACTATED RINGERS 1,000 ML IV SCH ×2 (13:55→21:55)
[2022-10-21] MEDS: MORPHINE SULFATE 4 MG/ML CPJ (NOT FOR IM USE) IV PRN ×3 (14:05→21:00)
[2022-10-21] MEDS: CLINDAMYCIN 300 MG in DEXTROSE 5% WATER 50 ML IV SCH (16:55)
[2022-10-21] MEDS: HYDROCODONE/ACETAMINOPHEN 10/325MG TABLET PO PRN ×2 (18:58→23:36)
[2022-10-21] MEDS: ATORVASTATIN CALCIUM 40MG TABLET PO SCH (20:59)
[2022-10-21] MEDS: ONDANSETRON HCL 4MG/2ML INJ IV PRN (21:07)
[2022-10-22] VITALS (110 sets, daily range): BP systolic 81–193; BP diastolic 49–187
[2022-10-22] MEDS: CLINDAMYCIN 300 MG in DEXTROSE 5% WATER 50 ML IV SCH ×3 (01:22→17:25)
[2022-10-22] MEDS: MORPHINE SULFATE 4 MG/ML CPJ (NOT FOR IM USE) IV PRN ×5 (01:23→22:03)
[2022-10-22] MEDS: DEXT 5%/LACTATED RINGERS 1,000 ML IV SCH ×4 (02:05→22:04)
[2022-10-22] MEDS: CLONIDINE 0.1MG TABLET PO NR (03:28)
[2022-10-22] MEDS: GABAPENTIN 100MG CAPSULE PO SCH ×3 (05:05→22:02)
[2022-10-22] MEDS: HYDRALAZINE HCL 100MG TABLET PO SCH ×3 (05:05→22:02)
[2022-10-22] MEDS: LOSARTAN POTASSIUM 50 MG TABLET PO SCH ×2 (05:05→17:26)
[2022-10-22] MEDS: AMLODIPINE 10MG TABLET PO SCH (08:50)
[2022-10-22] MEDS: NICARDIPINE 100 MG in SODIUM CHLORIDE 0.9% 60 ML IV PRN (09:12)
[2022-10-22] MEDS: HYDROCODONE/ACETAMINOPHEN 10/325MG TABLET PO PRN ×2 (12:13→17:25)
[2022-10-22] MEDS: CLONIDINE 0.1MG TABLET PO PRN (14:33)
[2022-10-22] MEDS: ONDANSETRON HCL 4MG/2ML INJ IV PRN (22:02)
[2022-10-22] MEDS: ATORVASTATIN CALCIUM 40MG TABLET PO SCH (22:03)
[2022-10-23] VITALS (42 sets, daily range): BP systolic 83–156; BP diastolic 34–113
[2022-10-23] MEDS: CLINDAMYCIN 300 MG in DEXTROSE 5% WATER 50 ML IV SCH ×3 (01:57→16:53)
[2022-10-23] MEDS: HYDROCODONE/ACETAMINOPHEN 10/325MG TABLET PO PRN ×4 (03:52→16:54)
[2022-10-23] MEDS: DEXT 5%/LACTATED RINGERS 1,000 ML IV SCH ×3 (04:45→16:55)
[2022-10-23] MEDS: LOSARTAN POTASSIUM 50 MG TABLET PO SCH ×2 (05:45→16:54)
[2022-10-23] MEDS: HYDRALAZINE HCL 100MG TABLET PO SCH ×3 (05:45→22:00)
[2022-10-23] MEDS: GABAPENTIN 100MG CAPSULE PO SCH ×3 (05:46→22:31)
[2022-10-23] MEDS: MORPHINE SULFATE 4 MG/ML CPJ (NOT FOR IM USE) IV PRN ×2 (06:40→22:32)
[2022-10-23] MEDS: AMLODIPINE 10MG TABLET PO SCH (10:53)
[2022-10-23] MEDS: ATORVASTATIN CALCIUM 40MG TABLET PO SCH (22:31)
[2022-10-24] VITALS: BP 113/77
[2022-10-24 04:00] VITALS: BP 135/81
[2022-10-24] MEDS: GABAPENTIN 100MG CAPSULE PO SCH ×3 (05:10→21:08)
[2022-10-24] MEDS: LOSARTAN POTASSIUM 50 MG TABLET PO SCH ×2 (05:11→17:05)
[2022-10-24] MEDS: HYDROCODONE/ACETAMINOPHEN 10/325MG TABLET PO PRN ×3 (05:11→18:38)
[2022-10-24] MEDS: DEXT 5%/LACTATED RINGERS 1,000 ML IV SCH ×4 (05:22→20:47)
[2022-10-24 08:00] VITALS: BP 123/72
[2022-10-24] MEDS: HYDRALAZINE HCL 100MG TABLET PO SCH ×3 (08:03→21:09)
[2022-10-24] MEDS: AMLODIPINE 10MG TABLET PO SCH (08:51)
[2022-10-24] MEDS: MORPHINE SULFATE 4 MG/ML CPJ (NOT FOR IM USE) IV PRN ×4 (08:51→18:59)
[2022-10-24 12:00] VITALS: BP 116/59
[2022-10-24 16:00] VITALS: BP 122/67
[2022-10-24 20:00] VITALS: BP 128/68
[2022-10-24] MEDS: ATORVASTATIN CALCIUM 40MG TABLET PO SCH (21:09)
[2022-10-25] VITALS: BP 123/66
[2022-10-25] MEDS: HYDROCODONE/ACETAMINOPHEN 10/325MG TABLET PO PRN ×4 (02:04→16:40)
[2022-10-25] MEDS: DEXT 5%/LACTATED RINGERS 1,000 ML IV SCH ×3 (03:25→16:45)
[2022-10-25 04:00] VITALS: BP 136/67
[2022-10-25] MEDS: LOSARTAN POTASSIUM 50 MG TABLET PO SCH ×2 (05:48→18:00)
[2022-10-25] MEDS: GABAPENTIN 100MG CAPSULE PO SCH ×3 (05:48→21:10)
[2022-10-25] MEDS: HYDRALAZINE HCL 100MG TABLET PO SCH ×3 (05:48→21:10)
[2022-10-25 08:00] VITALS: BP 121/62
[2022-10-25] MEDS: AMLODIPINE 10MG TABLET PO SCH (09:00)
[2022-10-25] MEDS ORDERED: LACTULOSE 20G/30ML UDC PO NR (11:30)
[2022-10-25 12:00] VITALS: BP 139/86
[2022-10-25 16:00] VITALS: BP 135/76
[2022-10-25 19:56] VITALS: BP 135/76
[2022-10-25] MEDS: MORPHINE SULFATE 4 MG/ML CPJ (NOT FOR IM USE) IV PRN (19:56)
[2022-10-25] MEDS: ATORVASTATIN CALCIUM 40MG TABLET PO SCH (21:10)
== END 2022-10-25 21:40 | DRG 460 ==
LOC: ER 07:14 → 7WST 10:51 → EDBEDREQ 10:54 → EDBEDREQTM 10:54 → ENRESERV 11:42 → 6EST 10-20 13:00 → MICUSO 10-21 12:50 → 6EST 10-23 18:00
PROVIDERS: ADMIT Internal Medicine Pulmonary Disease; ATTEND Internal Medicine Pulmonary Disease
PROC: 0SG0071 Fusion of Lumbar Vertebral Joint with Autologous Tissue Substitute, Posterior Approach, Posterior Column, Open Approach (ICD-10-PCS; principal; 2022-10-21)
PROC: 01NB0ZZ Release Lumbar Nerve, Open Approach (ICD-10-PCS; 2022-10-21)
PROC: 0SB20ZZ Excision of Lumbar Vertebral Disc, Open Approach (ICD-10-PCS; 2022-10-21)
PROC: 0SP004Z Removal of Internal Fixation Device from Lumbar Vertebral Joint, Open Approach (ICD-10-PCS; 2022-10-21)
PROC: 4A11X4G Monitoring of Peripheral Nervous Electrical Activity, Intraoperative, External Approach (ICD-10-PCS; 2022-10-21)
DX: M48.061 Spinal stenosis, lumbar region without neurogenic claudication (principal); G82.20 Paraplegia, unspecified; I25.10 Atherosclerotic heart disease of native coronary artery without angina pectoris; M32.9 Systemic lupus erythematosus, unspecified; M06.9 Rheumatoid arthritis, unspecified; J44.9 Chronic obstructive pulmonary disease, unspecified; F51.04 Psychophysiologic insomnia; Z20.822 Contact with and (suspected) exposure to COVID-19; I10 Essential (primary) hypertension; F40.240 Claustrophobia; E78.00 Pure hypercholesterolemia, unspecified; E66.9 Obesity, unspecified; M48.04 Spinal stenosis, thoracic region; M51.17 Intervertebral disc disorders with radiculopathy, lumbosacral region; M24.28 Disorder of ligament, vertebrae; G89.4 Chronic pain syndrome; M51.16 Intervertebral disc disorders with radiculopathy, lumbar region; R26.9 Unspecified abnormalities of gait and mobility; M47.896 Other spondylosis, lumbar region; M51.26 Other intervertebral disc displacement, lumbar region; Z90.710 Acquired absence of both cervix and uterus; Z96.641 Presence of right artificial hip joint; I25.2 Old myocardial infarction; Z88.0 Allergy status to penicillin; Z68.37 Body mass index [BMI] 37.0-37.9, adult; Z79.82 Long term (current) use of aspirin; Z87.891 Personal history of nicotine dependence; Z86.73 Personal history of transient ischemic attack (TIA), and cerebral infarction without residual deficits; Z68.36 Body mass index [BMI] 36.0-36.9, adult
CPT/HCPCS: 36415; 71045; 72100; 72131; 72148; 73502; 76000; 80048; 80053; 81003; 83735; 83880; 84484; 85025; 86850; 86900; 87426; 88300; 88304; 88311; 93005; 93306; 93970; 95863; 95925; 95926; 95928; 95929; 97116; 97162; 97166; 97530; 99285; A6261; C1893; J0330; J1100; J1580; J1650; J1885; J2250; J2270; J2405; J2704; J3010; J3490; J7050; J7060; J7121; P9047; C1713

== ENCOUNTER 2022-11-17 06:57 | Inpatient (IN) | payer MEDICARE, MEDICAID ==
[~2022-11-17] VITALS: Ht 167.6 cm; Wt 78.5 kg
[~2022-11-17 06:57] MED LIST changes: -AMLO10TA4 MT; +AMLO5TAB4 MT; -ARNUITY NS; +CLON0.1T PO; -CLON1PAT10 TD; +FLUT200B INH; +GABA-529 MT; +GABA-532 PO; -HYDR-3933 PO; +HYDR-4009 PO; +HYDR-4135 PO; -LINZESS; -LIP40 MT; -LOSA100T3 PO; +MAG-55 MT; +MULT-1146 MT; -P20 MT; +POLY17PO3 MT; -SUCR1ORA PO; +SUCR1TAB MT
[2022-11-17] MEDS ORDERED: MORPHINE SULFATE 4 MG/ML CPJ (NOT FOR IM USE) IV STA ×2 (08:00→11:00)
[2022-11-17] MEDS ORDERED: ONDANSETRON HCL 4MG/2ML INJ IV STA ×2 (08:00→11:00)
[2022-11-17] MEDS ORDERED: SODIUM CHLORIDE 0.9% 1,000 ML IV ONE (08:00)
[2022-11-17 08:38] LABS: BASOPHILS % 0.7 % (0.0-2.0); EOSINOPHILS % 4.3 % (0.0-5.0); HEMATOCRIT. 35.6 % (36.0-48.0); HEMOGLOBIN. 11.9 g/dL (12.0-16.0); MEAN CORPUSCULAR VOLUME 92.2 fL (81.0-99.0); MEAN PLATELET VOLUME 8.6 fl (7.4-10.4); MONOCYTES % 12.3 % (2.0-8.0); NEUTROPHILS % 63.7 % (40.0-76.0); PLATELET 313 x1000/uL (130-400); RED BLOOD CELL COUNT 3.86 mill/uL (4.2-5.4); RED CELL DISTRIBUTION WIDTH 15.6 % (11.6-14.6)
[2022-11-17 08:51] LABS: CHLORIDE 108 mEq/L (98-107)
[2022-11-17 09:01] LABS: CLARITY URINE CLEAR (CLEAR); COLOR URINE YELLOW (YELLOW); KETONES URINE NEGATIVE (NEGATIVE); LEUKOCYTE ESTERASE URINE NEGATIVE (NEGATIVE); NITRITE URINE NEGATIVE (NEGATIVE); OCCULT BLOOD URINE NEGATIVE (NEGATIVE); PH URINE 7.5 (4.5-8.0); PROTEIN URINE NEGATIVE (NEGATIVE); SPECIFIC GRAVITY URINE 1.008 (1.005-1.030); UROBILINOGEN URINE 0.2 E.U./dL (0.2-1.0)
[2022-11-17] MEDS ORDERED: POTASSIUM CHLORIDE 20MEQ TABLET SR PO ONE (11:15)
[2022-11-17 12:00] VITALS: BP 164/71
[2022-11-17 14:15] VITALS: BP 164/71
[2022-11-17] MEDS ORDERED: NALOXONE HCL 0.4MG/ML VIAL IV PRN (14:15)
[2022-11-17] MEDS: GABAPENTIN 300MG CAPSULE PO SCH ×2 (14:26→21:50)
[2022-11-17] MEDS: AMLODIPINE 5MG TABLET PO SCH (14:26)
[2022-11-17 16:00] VITALS: BP 171/76
[2022-11-17] MEDS: SUCRALFATE 1G TABLET PO SCH (18:38)
[2022-11-17] MEDS: DEXAMETHASONE 4MG/ML 1ML VIAL IV SCH (18:38)
[2022-11-17] MEDS: HYDRALAZINE HCL 50MG TABLET PO SCH (18:38)
[2022-11-17] MEDS: DOCUSATE SODIUM 100MG CAPSULE PO SCH (18:38)
[2022-11-17 20:00] VITALS: BP 122/69
[2022-11-17] MEDS: HYDROCODONE/ACETAMINOPHEN 10/325MG TABLET PO PRN (22:17)
[2022-11-18] VITALS: BP 140/68
[2022-11-18] MEDS: DEXAMETHASONE 4MG/ML 1ML VIAL IV SCH ×4 (00:20→18:05)
[2022-11-18 04:00] VITALS: BP 129/70
[2022-11-18] MEDS: GABAPENTIN 300MG CAPSULE PO SCH ×3 (06:09→21:17)
[2022-11-18 08:00] VITALS: BP 165/81
[2022-11-18] MEDS: HYDRALAZINE HCL 50MG TABLET PO SCH ×2 (09:39→16:49)
[2022-11-18] MEDS: SUCRALFATE 1G TABLET PO SCH ×3 (09:40→16:43)
[2022-11-18] MEDS: DOCUSATE SODIUM 100MG CAPSULE PO SCH ×2 (09:40→16:43)
[2022-11-18] MEDS: AMLODIPINE 5MG TABLET PO SCH (09:40)
[2022-11-18 12:00] VITALS: BP 165/78
[2022-11-18] MEDS: CLONIDINE 0.1MG TABLET PO PRN (12:53)
[2022-11-18 16:00] VITALS: BP 172/90
[2022-11-18] MEDS ORDERED: ACETAMINOPHEN 325MG TABLET PO PRN (16:30)
[2022-11-18] MEDS ORDERED: POTASSIUM CHLORIDE 20MEQ TABLET SR PO NR (16:30)
[2022-11-18] MEDS: ACETAMINOPHEN 325MG TABLET PO PRN (16:43)
[2022-11-18] MEDS: LIDOCAINE 5% PATCH TOP SCH (18:05)
[2022-11-18 18:10] LABS: HEMATOCRIT 35.6 % (36.0-48.0); HEMOGLOBIN 11.6 g/dL (12.0-16.0); MEAN CORPUSCULAR HEMOGLOBIN 30.1 pg (28.0-32.0); PLATELET 341 x1000/uL (130-400); RED BLOOD CELL COUNT 3.87 mill/uL (4.2-5.4); RED CELL DISTRIBUTION WIDTH 15.1 % (11.6-14.6)
[2022-11-18 18:28] LABS: CHLORIDE 105 mEq/L (98-107)
[2022-11-18 20:00] VITALS: BP 135/78
[2022-11-19] VITALS: BP 157/80
[2022-11-19 04:00] VITALS: BP 145/85
[2022-11-19] MEDS: GABAPENTIN 300MG CAPSULE PO SCH ×3 (06:30→21:07)
[2022-11-19] MEDS: LIDOCAINE 5% PATCH TOP SCH (06:41)
[2022-11-19 08:00] VITALS: BP 159/78
[2022-11-19] MEDS ORDERED: METHYLPREDNISOLONE 4MG TABLET PO NR (09:00)
[2022-11-19] MEDS: DOCUSATE SODIUM 100MG CAPSULE PO SCH ×2 (10:31→17:51)
[2022-11-19] MEDS: FAMOTIDINE 20MG TABLET PO SCH (10:31)
[2022-11-19] MEDS: HYDRALAZINE HCL 50MG TABLET PO SCH ×2 (10:32→17:52)
[2022-11-19] MEDS: SUCRALFATE 1G TABLET PO SCH ×3 (10:32→17:00)
[2022-11-19] MEDS: AMLODIPINE 5MG TABLET PO SCH (10:32)
[2022-11-19 12:00] VITALS: BP 170/92
[2022-11-19] MEDS: ACETAMINOPHEN 325MG TABLET PO PRN (12:27)
[2022-11-19] MEDS: CLONIDINE 0.1MG TABLET PO PRN (12:27)
[2022-11-19] MEDS: HYDROCODONE/ACETAMINOPHEN 10/325MG TABLET PO PRN (14:35)
[2022-11-19 15:57] VITALS: BP 159/79
[2022-11-19 20:00] VITALS: BP 126/68
[2022-11-20] VITALS (7 sets, daily range): BP systolic 121–202; BP diastolic 55–101
[2022-11-20] MEDS: HYDROCODONE/ACETAMINOPHEN 10/325MG TABLET PO PRN ×2 (04:29→17:56)
[2022-11-20] MEDS: CLONIDINE 0.1MG TABLET PO PRN (04:31)
[2022-11-20] MEDS: GABAPENTIN 300MG CAPSULE PO SCH ×3 (05:14→21:21)
[2022-11-20 06:58] LABS: HEMOGLOBIN 12.2 g/dL (12.0-16.0); MEAN CORPUSCULAR HEMOGLOBIN 30.5 pg (28.0-32.0); MEAN CORPUSCULAR VOLUME 92.7 fL (81.0-99.0); PLATELET 329 x1000/uL (130-400); RED BLOOD CELL COUNT 3.98 mill/uL (4.2-5.4); RED CELL DISTRIBUTION WIDTH 15.2 % (11.6-14.6)
[2022-11-20] MEDS: METHYLPREDNISOLONE 4MG TABLET PO SCH ×4 (07:20→17:56)
[2022-11-20 07:39] LABS: CHLORIDE 107 mEq/L (98-107)
[2022-11-20] MEDS: DOCUSATE SODIUM 100MG CAPSULE PO SCH ×2 (09:27→17:56)
[2022-11-20] MEDS: SUCRALFATE 1G TABLET PO SCH ×3 (09:27→17:57)
[2022-11-20] MEDS: FAMOTIDINE 20MG TABLET PO SCH (09:27)
[2022-11-20] MEDS: AMLODIPINE 5MG TABLET PO SCH (09:28)
[2022-11-20] MEDS: HYDRALAZINE HCL 50MG TABLET PO SCH ×2 (09:28→17:56)
[2022-11-20] MEDS: LIDOCAINE 5% PATCH TOP SCH (09:31)
[2022-11-20] MEDS ORDERED: LIDO700A30 TOP (15:29)
[2022-11-20] MEDS ORDERED: METHYLPREDNISOLONE 4MG TABLET PO NR (21:00)
[2022-11-21] VITALS: BP 123/76
[2022-11-21 04:00] VITALS: BP 152/75
[2022-11-21] MEDS: HYDROCODONE/ACETAMINOPHEN 10/325MG TABLET PO PRN (04:09)
[2022-11-21] MEDS: GABAPENTIN 300MG CAPSULE PO SCH (05:36)
[2022-11-21] MEDS ORDERED: METHYLPREDNISOLONE 4MG TABLET PO SCH (07:20)
[2022-11-21 08:00] VITALS: BP 179/96
[2022-11-21] MEDS: SUCRALFATE 1G TABLET PO SCH (08:43)
[2022-11-21] MEDS: FAMOTIDINE 20MG TABLET PO SCH (08:44)
[2022-11-21] MEDS: DOCUSATE SODIUM 100MG CAPSULE PO SCH (08:44)
[2022-11-21] MEDS: HYDRALAZINE HCL 50MG TABLET PO SCH (08:44)
[2022-11-21] MEDS: AMLODIPINE 5MG TABLET PO SCH (08:45)
[2022-11-21] MEDS: LIDOCAINE 5% PATCH TOP SCH (08:54)
[2022-11-21 10:03] VITALS: BP 179/96
[2022-11-22] MEDS ORDERED: METHYLPREDNISOLONE 4MG TABLET PO SCH (06:00)
[2022-11-23] MEDS ORDERED: METHYLPREDNISOLONE 4MG TABLET PO SCH (07:20)
[2022-11-24] MEDS ORDERED: METHYLPREDNISOLONE 4MG TABLET PO SCH (07:20)
== END 2022-11-21 11:47 | disposition home or self-care (01) | DRG 552 ==
LOC: ER 06:57 → 6EST 11:44 → ENRESERV 13:01
PROVIDERS: ADMIT Internal Medicine Pulmonary Disease; ATTEND Internal Medicine Pulmonary Disease
DX: M48.061 Spinal stenosis, lumbar region without neurogenic claudication (principal); E44.1 Mild protein-calorie malnutrition; M54.16 Radiculopathy, lumbar region; M51.27 Other intervertebral disc displacement, lumbosacral region; I10 Essential (primary) hypertension; M06.9 Rheumatoid arthritis, unspecified; J45.909 Unspecified asthma, uncomplicated; I25.10 Atherosclerotic heart disease of native coronary artery without angina pectoris; E78.00 Pure hypercholesterolemia, unspecified; M47.9 Spondylosis, unspecified; G89.29 Other chronic pain; Z96.649 Presence of unspecified artificial hip joint; Z88.5 Allergy status to narcotic agent; Z90.710 Acquired absence of both cervix and uterus; Z86.73 Personal history of transient ischemic attack (TIA), and cerebral infarction without residual deficits; Z79.899 Other long term (current) drug therapy; Z88.0 Allergy status to penicillin
CPT/HCPCS: 36415; 71045; 71275; 72131; 72148; 74174; 80048; 80053; 81003; 83880; 84484; 85025; 85027; 93005; 97162; 99285; J1100; J2270; J2405; J7030; J7509